=== PATIENT | male | born 1960 | race Two or more races ===

== ENCOUNTER 2025-03-10 10:32 | Inpatient (IN) | payer OTHER, MEDICAID ==
[~2025-03-10] VITALS: Ht 170.2 cm; Wt 93.9 kg
[2025-03-10 10:56] VITALS: PULSE 88; RESP 18; O2SAT 97
--- NOTE | 2025-03-10 11:04 | ED.PDOC ---
History of Present Illness HPI Comments 64-year-old male who is Irish-speaking BIBA with prior medical history of hypertension, diabetes, DVT, possible PE due from taking Eliquis and a chief complaint of chest pain. EMS report that the patient recently went to [place] one week ago and did not want to go back, prompting EMS to bring him to [facility]. Patient reports on having sternal chest pain for the past four days associated with chills, cough, shortness a breath, and N/V. Patient notes on drinking alcohol for the past four days. Patient does have a 7/10 on the pain scale. Denies any other symptoms at this time. Denies fever, /D. No other associated symptoms, modifiers, recent injuries or sick contacts present at this time. Chief Complaint: Chest Pain Time Seen by MD: 11:00 Reviewed Notes: Nurses Notes, Cooker Helper Notes, Medications, Allergies Allergies: Coded Allergies: NO KNOWN ALLERGIES (Unverified , 03/10/25) Information Source: Patient, Emergency Med Personnel Mode of Arrival: EMS Severity: Moderate Timing: Days Duration: Since onset, Days Prehospital treatment: None Past Medical History PAST MEDICAL HISTORY: DM, HTN, PE (Possible PE due from taking Eliquis) Past Medical History (Other): Possible PE due from taking Eliquis, DVT Surgical History: Denies all surgeries Family History Family History: Reviewed,noncontributory to illness, Unknown Social History Smoker: Non-Smoker Alcohol: Heavy Drugs: Denies Drug Use Lives In: Home Constitutional: reports: chills; denies: diaphoresis, fatigue, fever, malaise, sweats, weakness, others EENTM: denies: blurred vision, double vision, ear bleeding, ear discharge, ear drainage, ear pain, ear ringing, eye pain, eye redness, hearing loss, mouth pain, mouth swelling, nasal discharge, nose bleeding, nose congestion, nose pain, photophobia, tearing, throat pain, throat swelling, voice changes, others Respiratory: reports: cough, shortness of breath; denies: hemoptysis, orthopne a, SOB at rest, SOB with excertion, stridor, wheezing, others Cardiovascular: reports: chest pain; denies: dizzy spells, diaphoresis, Dyspnea on exertion, edema, irregular heart beat, left arm pain, lightheadedness, palpitations, PND, syncope, others Gastrointestinal: reports: nausea, vomiting; denies: abdomen distended, abdominal pain, blood streaked bowels, constipated, diarrhea, dysphagia, difficulty swallowing, hematemesis, melena, poor appetite, poor fluid intake, rectal bleeding, rectal pain, others Genitourinary: denies: burning, dysuria, flank pain, frequency, hematuria, incontinence, penile discharge, penile sore, pain, testicle pain, testicle swelling, urgency, others Neurological: denies: dizziness, fainting, headache, left sided numbness, left sided weakness, numbness, paresthesia, pre-existing deficit, right sided numbness, right sided weakness, seizure, speech problems, tingling, tremors, weakness, others Musculoskeletal: denies: back pain, gout, joint pain, joint swelling, muscle pain, muscle stiffness, neck pain, others Integumetry: denies: bruises, change in color, change in hair/nails, dryness, laceration, lesions, lumps, rash, wounds, others Allergic/Immunocompromised: denies: Difficulty Healing, Frequent Infections, Hives, Itching, others Hematologic/Lymphatic: denies: anemia, blood clots, easy bleeding, easy bruising, swollen glands, others Endocrine: denies: excessive hunger, excessive sweating, excessive thirst, excessive urination, flushing, intolerance to cold, intolerance to heat, unexplained weight gain, unexplained weight loss, others Psychiatric: denies: anxiety, bipolar disorder, depression, hopeless, panic disorder, schizophrenia, sleepless, suicidal, others All Other Systems: Reviewed and Negative Physical Exam General Appearance: Moderate Distress, No Apparent Distress, Other (Alcohol on the breath) HEENT: Normal ENT Inspection, Pharynx Normal, TMs Normal Neck: Full Range of Motion, Non-Tender, Normal, Normal Inspection Respiratory: Chest Non-Tender, Lungs Clear, No Accessory Muscle Use, No Respiratory Distress, Normal Breath Sounds Cardiovascular: No Edema, No JVD, No Murmur, No Gallop, Normal Peripheral Pulses, Regular Rate/Rhythm Breast Exam: Deferred Gastrointestinal: No Organomegaly, Non Tender, No Pulsatile Mass, Normal Bowel Sounds, Soft Genitalia: Deferred Pelvic: Deferred Rectal: Deferred Extremities: No calf tenderness, Normal capillary refill, Normal inspection, Normal range of motion, Non-tender, No pedal edema Musculoskeletal : Apperance: Normal Neurologic: Alert, plate glass grinder II-XII nml as Tested, Motor Weakness, Normal Affect, Normal Mood, No Sensory Deficits Cerebellar Function: Normal Reflexes: Normal Skin: Dry, Normal Color, Warm Lymphatic: No Adenopathy Was a procedure done? Was a procedure done?: No EKG EKG : Pulse Rate (adult): 86 [place]: Normal Cardiac Rhythm: NSR Block: None Hypertrophy: None ST: Normal Comments EKG 1: 86 NSR low-voltage Differential Dx Considerations may include: ACS, [place], generalized weakness, electrolyte imbalance X-Ray, Labs, Meds, VS Vital Signs Date Time Temp Pulse Resp B/P (MAP) Pulse Ox O2 Delivery O2 Flow Rate FiO2 03/10/25 11:26 80 03/10/25 11:04 86 03/10/25 11:00 94 Room Air* 0 21 03/10/25 10:56 88 18 97 Room Air* 0 21 03/10/25 10:55 99.0 88 18 133/81 (98) 97 99.0 03/10/25 10:35 86 03/10/25 10:32 98.5 94 12 147/93 98 98.5 Lab Test 03/10/25 10:59 Range/Units White Blood Count 3.6 L 4.4-10.8 10^3/uL Red Blood Count 4.44 L 4.5-5.90 10^6/uL Hemoglobin 14.5 13.5-17.5 g/dL Hematocrit 41.6 41.0-53.0 % Mean Corpuscular Volume 93.6 80.0-100.0 fL Mean Corpuscular Hemoglobin 32.6 H 28.0-32.0 pg Mean Corpuscular Hemoglobin Concent 34.8 32.0-36.0 g/dL Red Cell Distribution Width 14.7 H 11.8-14.3 % Platelet Count 150 140-450 10^3/uL Mean Platelet Volume 8.1 6.9-10.8 fL Neutrophils (%) (Auto) 60.1 37.0-80.0 % Lymphocytes (%) (Auto) 27.9 10.0-50.0 % Monocytes (%) (Auto) 9.7 0.0-12.0 % Eosinophils (%) (Auto) 1.0 0.0-7.0 % Basophils (%) (Auto) 1.3 0.0-2.0 % Neutrophils # (Auto) 2.2 1.6-8.6 10 ^3/uL Lymphocytes # (Auto) 1.0 0.4-5.4 10 ^3/uL Monocytes # (Auto) 0.3 0-1.3 10 ^3/uL Eosinophils # (Auto) 0 0-0.8 10 ^3/uL Basophils # (Auto) 0 0-0.2 10 ^3/uL Nucleated Red Blood Cells 0.2 % D-Dimer, Quantitative Pending Sodium Level 136 136-145 mmol/L Potassium Level 4.3 3.5-5.1 mmol/L Chloride Level 94 L 98-107 mmol/L Carbon Dioxide Level 23 20-31 mmol/L Anion Gap 19 H 5-15 Blood Urea Nitrogen < 5 L 9-23 mg/dL Creatinine 0.91 0.700-1.30 mg/dL Glomerular Filtration Rate Calc 94 >90 mL/min BUN/Creatinine Ratio 5.5 L 10.0-20.0 Serum Glucose 248 H 74-106 mg/dL Calcium Level 8.6 L 8.7-10.4 mg/dL Troponin I High Sensitivity 6 </=54 ng/L Plasma/Serum Blood Alcohol 204.4 H <10 mg/dL Current Medications Medications (Trade) Dose Ordered Sig/Florencia Route Start Time Stop Time Status Last Admin Aspirin 162 mg ONCE ONCE PO 03/10/25 10:45 03/10/25 10:47 DC 03/10/25 11:07 IV Hep-Lock was established The patient was given aspirin 160 mg by mouth The alcohol level is 204 The patient's chemistry panel shows hyperglycemia at 248 The CBC is within normal limits. At this time, the patient is being admitted. The chest x-ray is negative. The patient does have a history what seems to be cardiac and so we are going to ask the programs manager to also see the patient. We will also follow up on the patient's D-dimer Images Reviewed?: Images reviewed and evaluated by me Time of 1ST Reevaluation: 11:30 Reevaluation 1ST: Unchanged Patient Education/Counseling: Diagnosis, Treatment, Prognosis Family Education/Counseling: No Family Present SEPSIS Sepsis Screen Date sepsis recognized/suspect: Mar 10, 2025 Time Sepsis recognized/suspect: 103 Recent Procedure: No On Antibiotic Therapy: No Respiratory Rate >20: No Heart Rate >90: Yes Temp<36 C (96.8 F) or >38.3 C: No SBP <90 or MAP <65 mmHG: No New Acute Mental Status Change: No Is the patient on CPAP, BIPAP,: No Physician Orders Electrocardigram (03/10/25 11:37) Electrocardigram (03/10/25 13:37) Chest Portable (03/10/25 10:45) D-Dimer (03/10/25 10:45) Heplock Iv (03/10/25 10:45) Urinalysis (03/10/25 10:45) Drug Screen (03/10/25 10:45) Troponin-I Hs (03/10/25 11:45) Troponin-I Hs (03/10/25 13:45) Vital Signs Date Time Temp Pulse Resp B/P (MAP) Pulse Ox O2 Delivery O2 Flow Rate FiO2 03/10/25 11:26 80 03/10/25 11:04 86 03/10/25 11:00 94 Room Air* 0 21 03/10/25 10:56 88 18 97 Room Air* 0 21 03/10/25 10:55 99.0 88 18 133/81 (98) 97 99.0 03/10/25 10:35 86 03/10/25 10:32 98.5 94 12 147/93 98 98.5 Laboratory Tests Test 03/10/25 10:59 White Blood Count 3.6 10^3/uL (4.4-10.8) L Medications Medications Dose Ordered Sig/Florencia Route Start Time Stop Time Status Last Admin Dose Admin Aspirin 162 mg ONCE ONCE PO 03/10/25 10:45 03/10/25 10:47 DC 03/10/25 11:07 Departure 1 Departure Time of Disposition: 11:49 Impression: Primary Impression: Acute myocardial ischemia Additional Impression: Alcohol intoxication Qualified Codes: F10.920 - Alcohol use, unspecified with intoxication, uncomplicated Disposition: 09 ADMITTED INPATIENT Admit to: Tele Condition: Fair Critical Care Note Critical Care Time?: Yes (45 min-critical care time only) Stability Stability form required: Yes Unstable for transfer: Telemetry monitoring (Telemetry monitoring required), ED Physician Assesment (Clinical assesment) Heart Score Heart Score: Heart Score Response (Comments) Value History Moderate Suspicious 1 EKG Repolarization Disturb 1 Age >65 2 Risk Factors >3 or Hx ASHD 2 Troponin Normal limit 0 Total 6 I personally scribed for JEREMIAS JOSE MD ([email or web address]) on 03/10/25 at 11:04. Electronically submitted by Jamie Núñez ([email or web address]). JEREMIAS JOSE MD Mar 10, 2025 11:04
--- NOTE | 2025-03-10 11:16 | DVH ---
EXAM: XY CHEST PORTABLE HISTORY: cp COMPARISON: None TECHNIQUE: Portable AP view of the chest was performed. FINDINGS: The right costophrenic angle is not included here. There is interstitial prominence, greatest centrally. No pneumothorax or consolidative infiltrates. The heart is not enlarged. IMPRESSION: 1. Central interstitial prominence may be due to reactive airways disease or mild CHF. 2. The right costophrenic angle is not imaged here.
--- NOTE | 2025-03-10 11:29 | ECG ---
[facility] Test Date: 2025-03-10 Test Time: 11:26:03 Pat Name: CRISTHIAN PUENTES Department: [facility] ED Patient ID: [id number] Room: 0212T Gender: M Front End Developer Designer: STEPHANIE : 1960 Requested By: JEREMIAS JOSE Order Number: [id number] Reading MD: Festus Pickard Measurements Intervals [place] Rate: 80 P: 0 NE: 0 QRS: 35 QRSD: 89 T: 10 QT: 400 QTc: 462 Interpretive Statements Accelerated junctional rhythm Low voltage, precordial leads Probable anteroseptal infarct, old Electronically Signed On 03-15-2025 10:08:31 PST by Festus Pickard Please click the below link to view image of tracing.
[2025-03-10 11:35] LABS: Hematocrit 41.6 % (41.0-53.0); Hemoglobin 14.5 g/dL (13.5-17.5); Mean Corpuscular Hemoglobin 32.6 pg (28.0-32.0); Mean Corpuscular Volume 93.6 fL (80.0-100.0); Nucleated Red Blood Cells % 0.2 %
[2025-03-10 11:37] LABS: Potassium 4.3 mmol/L (3.5-5.1); Sodium 136 mmol/L (136-145)
[2025-03-10 11:38] LABS: Anion Gap 19 (5-15); Carbon Dioxide 23 mmol/L (20-31)
[2025-03-10 11:44] LABS: BUN/Creatinine Ratio 5.5 (10.0-20.0); Blood Urea Nitrogen < 5 mg/dL (9-23); Calcium 8.6 mg/dL (8.7-10.4); Chloride 94 mmol/L (98-107); Glucose 248 mg/dL (74-106)
--- NOTE | 2025-03-10 11:58 | ECG ---
[facility] Test Date: 2025-03-10 Test Time: 10:35:04 Pat Name: CRISTHIAN PUENTES Department: [facility] ED Patient ID: [id number] Room: 0212T Gender: M Timber Hewer: STEPHANIE : 1960 Requested By: JEREMIAS JOSE Order Number: [id number] Reading MD: Festus Pickard Measurements Intervals [place] Rate: 86 P: -75 [place]: 173 QRS: 63 QRSD: 75 T: 73 QT: 394 QTc: 472 Interpretive Statements Sinus or ectopic atrial rhythm Low voltage, extremity and precordial leads Probable anteroseptal infarct, old Electronically Signed On 03-15-2025 10:08:25 PST by Festus Pickard Please click the below link to view image of tracing.
[2025-03-10 13:08] LABS: Urine Protein, UAD TRACE (Negative)
[2025-03-10 13:21] LABS: Amphetamine Screen, Urine Neg (NEGATIVE); Barbiturate Scree,Urine Neg (NEGATIVE); Benzodiazephine Screen, Urine Neg (NEGATIVE); Cannabinoid Screen, Urine Neg (NEGATIVE); Cocaine Screen, Urine Neg (NEGATIVE); Opiate Scree,Urine Neg (NEGATIVE); Phencyclidine Screen, Urine Neg (NEGATIVE)
--- NOTE | 2025-03-10 13:29 | ECG ---
[facility] Test Date: 2025-03-10 Test Time: 13:26:57 Pat Name: CRSITHIAN PUENTES Department: [facility] ED Patient ID[id number] Room: 0212T Gender: M Miter Cutter: STEPHANIE : 1960 Requested By: JEREMIAS JOSE Order Number: [id number] Reading MD: Festus Pickard Measurements Intervals [place] Rate: 78 P: -87 [place]: 171 QRS: 51 QRSD: 97 T: 34 QT: 411 QTc: 469 Interpretive Statements Sinus or ectopic atrial rhythm Borderline low voltage, extremity leads Anteroseptal infarct, old Baseline wander in lead(s) V2 Electronically Signed On 03-15-2025 10:46:54 PST by Festus Pickard Please click the below link to view image of tracing.
[2025-03-10] MEDS: MAALOX PLUS or MAALOX 30 ML PO ONE (15:22)
[2025-03-10] MEDS: CARVEDILOL 3.125 MG TAB PO ONE (15:22)
[2025-03-10] MEDS: PROCHLORPERAZINE EDISYLATE 5 MG/ML 2ML VIAL IV ONE (17:06)
--- NOTE | 2025-03-10 18:06 | DVH ---
INDICATION: pain TECHNIQUE: Multiple real-time sonographic images of the abdomen were obtained. COMPARISON: None FINDINGS: Echogenicity of the hepatic parenchyma suggests steatosis.. The liver measures 18.4 cm. No intrahepatic biliary ductal dilatation is noted. The gallbladder wall measures 0.2 cm and is unremarkable. No gallstones or sludge is seen. The common duct measures 0.7 cm and is unremarkable. No pericholecystic fluid is noted. Negative sonographic Martinez's sign The right kidney measures 11.8 cm. No hydronephrosis. The pancreas is not well visualized due to obscuration from bowel gas. The visualized portions of the IVC and aorta are grossly unremarkable. IMPRESSION: 1. 18.4 cm liver with parenchymal changes suggesting steatosis. 2. No gallstones or gallbladder wall thickening. Mildly dilated common bile duct 7 mm.
[2025-03-10] MEDS ORDERED: DEXTROSE (50%) 50ML SYRG IV PRN (19:30)
[2025-03-10 19:37] VITALS: PULSE 87; RESP 17; O2SAT 96
[2025-03-10] MEDS ORDERED: NITROGLYCERIN 0.4 MG SL TAB SL PRN (20:00)
[2025-03-10] MEDS: ONDANSETRON HCL 4 MG/2 ML VIAL IV PRN (21:02)
[2025-03-10] MEDS: MORPHINE SULFATE INJ 2 MG/ml SYRG IV PRN (21:02)
[2025-03-10] MEDS: IOHEXOL 350 MG/ML 100ML IJ ONE (21:21)
[2025-03-10] MEDS: ACCU-CHEK COMFORT CURVE STRIP VI SCH (22:00)
--- NOTE | 2025-03-10 22:01 | DVH ---
CTA Chest with intravenous contrast INDICATION: r/o pe COMPARISON: XY CHEST PORTABLE on DOS: 03/10/25 TECHNIQUE: Multidetector spiral CTA of the chest was performed of the chest with intravenous contrast. PULMONARY ANGIOGRAPHY PROTOCOL was utilized using a bolus- tracking technique centered on the main pulmonary artery. Axial, coronal and sagittal multiplanar and MIP reformats were performed. Radiation Dose : 1. Chest: CTDI volume is 26.84 mGy. Dose-length product is 2217.57 mGy*cm The dose indicators for CT are the volume Computed Tomography (CT) Dose Index (CTDIvol) and the Dose Length Product (DLP), and are measured in units of mGy and mGy-cm, respectively. These indicators are not patient dose, but values generated from the CT scanner acquisition factors. The report includes radiation exposure data for exposures received during this examination. Contrast: 100 cc Omnipaque 350. Findings: Pulmonary artery: No pulmonary embolism Lower neck: Normal thyroid. Lungs: No focal consolidation, pleural effusion or pneumothorax. Heart/Vascular Structures: Normal heart size. No pericardial effusion. Coronary calcifications. Lymph Nodes: No adenopathy Pleura: No pleural effusion or significant pneumothorax. Musculoskeletal: No acute osseous abnormality. Soft tissues: Normal. Upper abdomen: Limited portions of the upper abdomen are unremarkable. IMPRESSION: No pulmonary embolus or other acute abnormality.
[2025-03-10 22:36] VITALS: BP 173/107; PULSE 87; RESP 18; TEMP 98.5; O2SAT 93
[2025-03-10] MEDS: ATORVASTATIN 20 MG TAB PO SCH (23:08)
[2025-03-10] MEDS: ACETAMINOPHEN 325 MG TAB PO PRN (23:09)
[2025-03-10] MEDS: InsuLIN REG 1unit/0.01ml Soln (100units/ml) SC SCH (23:17)
[2025-03-10 23:50] VITALS: BP 173/107; PULSE 87; RESP 18; O2SAT 93
[2025-03-11 01:00] VITALS: BP 159/100; PULSE 84; RESP 18; TEMP 98.2; O2SAT 92
[2025-03-11] MEDS: HYDROcodone-ACET 5/325MG TAB PO PRN (01:10)
--- NOTE | 2025-03-11 04:38 | DVHHP2 ---
History of Present Illness Reason for Visit: Chest pain History of Present Illness 64-year-old male presents for evaluation of chest pain. Patient reports a three day history of substernal pressure-like nonradiating chest pain with associated nausea and shortness of breath. Currently reports the pain at 6/10 intensity. No cough or fever. Past Medical History Hypertension, diabetes mellitus, DVT Past Surgical History Denies Family History Noncontributory Smoke: No ALCOHOL: heavy Drugs: None Lives: with Family Review of Systems Review of Systems Review of systems are currently negative otherwise addressed in HPI. Allergies: Coded Allergies: NO KNOWN ALLERGIES (Unverified , 03/10/25) Medications Current Medications Medications Dose Ordered Sig/Florencia Route Start Time Stop Time Status Last Admin Dose Admin Aspirin 81 mg DAILY PO 03/11/25 10:00 Atorvastatin Calcium 10 mg HS PO 03/10/25 22:00 03/10/25 23:08 10 MG Diagnostic Test (Pha) 1 strip ACHS 03/10/25 22:00 03/10/25 22:00 1 STRIP Insulin Human Regular ACHS SC 03/10/25 22:00 03/10/25 23:17 4 UNITS Dextrose 50 ml UD PRN IV 03/10/25 19:30 Ondansetron HCl 4 mg Q4HP PRN IV 03/10/25 19:30 03/10/25 23:08 4 MG Acetaminophen 650 mg Q6HP PRN PO 03/10/25 19:30 03/10/25 23:09 650 MG Nitroglycerin 0.4 mg Q5MINP PRN SL 03/10/25 20:00 Morphine Sulfate 2 mg Q30M PRN IV 03/10/25 20:00 03/10/25 21:02 2 MG Clonidine HCl 0.1 mg Q6HP PRN PO 03/11/25 00:15 03/11/25 00:14 0.1 MG Acetaminophen/ Hydrocodone Bitart 1 tab Q6HPRN PRN PO 03/11/25 01:00 03/11/25 01:10 1 TAB Exam Vital Signs Vital Signs Date Time Temp Pulse Resp B/P (MAP) Pulse Ox O2 Delivery O2 Flow Rate FiO2 03/11/25 01:14 159/100 03/11/25 01:00 98.2 84 18 92 98.2 03/10/25 22:36 Room Air* 0 21 Exam Gen: 64-year-old male in mild distress Skin: Warm, dry, normal color and texture, no rash. HEENT: Normocephalic atraumatic, mucous membranes moist and pink. Neck: Cervical and supraclavicular nodes normal without enlargement, trachea is midline, thyroid gland is normal without masses. Pulmonary: Clear to auscultation and percussion bilaterally. Cardiac: Regular rate and rhythm. No murmur Abdomen: Soft, nontender, nondistended, bowel sounds present all 4 quadrants, no guarding, no rigidity, no organomegaly. Extremities: No cyanosis, clubbing, no edema Neuro: Cranial nerves II through XII grossly intact, normal affect and speech, no focal motor deficits. Labs/Xrays ORDERING PHYSICIAN: JEREMIAS JOSE MD PROCEDURE(s): GBUS - GALLBLADDER REASON: pain ORDER NUMBER(s): [id number], ACCESSION NUMBER(s): [id number] INDICATION: pain TECHNIQUE: Multiple real-time sonographic images of the abdomen were obtained. COMPARISON: None FINDINGS: Echogenicity of the hepatic parenchyma suggests steatosis.. The liver measures 18.4 cm. No intrahepatic biliary ductal dilatation is noted. The gallbladder wall measures 0.2 cm and is unremarkable. No gallstones or sludge is seen. The common duct measures 0.7 cm and is unremarkable. No pericholecystic fluid is noted. Negative sonographic Martinez's sign The right kidney measures 11.8 cm. No hydronephrosis. The pancreas is not well visualized due to obscuration from bowel gas. The visualized portions of the IVC and aorta are grossly unremarkable. IMPRESSION: 1. 18.4 cm liver with parenchymal changes suggesting steatosis. 2. No gallstones or gallbladder wall thickening. Mildly dilated common bile duct 7 mm. ORDERING PHYSICIAN: KAYLIN HINTON PROCEDURE(s): CTACH - CT ANGIO CHEST CONTRAST REASON: r/o pe ORDER NUMBER(s): [id number], ACCESSION NUMBER(s): [id number] CTA Chest with intravenous contrast INDICATION: r/o pe COMPARISON: XY CHEST PORTABLE on DOS: 03/10/25 TECHNIQUE: Multidetector spiral CTA of the chest was performed of the chest with intravenous contrast. PULMONARY ANGIOGRAPHY PROTOCOL was utilized using a bolus- tracking technique centered on the main pulmonary artery. Axial, coronal and sagittal multiplanar and MIP reformats were performed. Radiation Dose : 1. Chest: CTDI volume is 26.84 mGy. Dose-length product is 2217.57 mGy*cm The dose indicators for CT are the volume Computed Tomography (CT) Dose Index (CTDIvol) and the Dose Length Product (DLP), and are measured in units of mGy and mGy-cm, respectively. These indicators are not patient dose, but values g enerated from the CT scanner acquisition factors. The report includes radiation exposure data for exposures received during this examination. Contrast: 100 cc Omnipaque 350. Findings: Pulmonary artery: No pulmonary embolism Lower neck: Normal thyroid. Lungs: No focal consolidation, pleural effusion or pneumothorax. Heart/Vascular Structures: Normal heart size. No pericardial effusion. Coronary calcifications. Lymph Nodes: No adenopathy Pleura: No pleural effusion or significant pneumothorax. Musculoskeletal: No acute osseous abnormality. Soft tissues: Normal. Upper abdomen: Limited portions of the upper abdomen are unremarkable. IMPRESSION: No pulmonary embolus or other acute abnormality. Labs Test 03/10/25 22:35 03/10/25 22:17 03/10/25 12:05 03/10/25 10:59 Range/Units POC Glucose 208 H 70-106 mg/dl Troponin I High Sensitivity 10 </=54 ng/L Urine Color Light-yellow Yellow Urine Clarity Clear Clear Urine pH 7.5 5.0-9.0 Urine Specific [place] 1.019 1.001-1.035 Urine Protein Trace H Negative Urine Ketones 1+ H Negative Urine Blood Negative Negative /uL Urine Nitrite Negative Negative Urine Bilirubin Negative Negative Urine Urobilinogen 2 H Negative mg/dL Urine Leukocyte Esterase Negative Negative /uL Urine RBC 1 0 - 3 /hpf Urine Microscopic WBC 1 0-3 /HPF Urine Squamous Epithelial Cells Few <5 /hpf Urine Bacteria None seen None Seen /hpf Urine Glucose 4+ H Normal mg/dL Urine Opiates Screen Neg NEGATIVE Urine Fentanyl Screen Neg NEGATIVE Urine Barbiturates Screen Neg NEGATIVE Urine Phencyclidine Screen Neg NEGATIVE Urine Amphetamines Screen Neg NEGATIVE Urine Benzodiazepines Screen Neg NEGATIVE Urine Cocaine Screen Neg NEGATIVE Urine Cannabinoids Screen Neg NEGATIVE White Blood Count 3.6 L 4.4-10.8 10^3/uL Red Blood Count 4.44 L 4.5-5.90 10^6/uL Hemoglobin 14.5 13.5-17.5 g/dL Hematocrit 41.6 41.0-53.0 % Mean Corpuscular Volume 93.6 80.0-100.0 fL Mean Corpuscular Hemoglobin 32.6 H 28.0-32.0 pg Mean Corpuscular Hemoglobin Concent 34.8 32.0-36.0 g/dL Red Cell Distribution Width 14.7 H 11.8-14.3 % Platelet Count 150 140-450 10^3/uL Mean Platelet Volume 8.1 6.9-10.8 fL Neutrophils (%) (Auto) 60.1 37.0-80.0 % Lymphocytes (%) (Auto) 27.9 10.0-50.0 % Monocytes (%) (Auto) 9.7 0.0-12.0 % Eosinophils (%) (Auto) 1.0 0.0-7.0 % Basophils (%) (Auto) 1.3 0.0-2.0 % Neutrophils # (Auto) 2.2 1.6-8.6 10 ^3/uL Lymphocytes # (Auto) 1.0 0.4-5.4 10 ^3/uL Monocytes # (Auto) 0.3 0-1.3 10 ^3/uL Eosinophils # (Auto) 0 0-0.8 10 ^3/uL Basophils # (Auto) 0 0-0.2 10 ^3/uL Nucleated Red Blood Cells 0.2 % D-Dimer, Quantitative 1.23 H 0.0-0.49 mg/L FEU Sodium Level 136 136-145 mmol/L Potassium Level 4.3 3.5-5.1 mmol/L Chloride Level 94 L 98-107 mmol/L Carbon Dioxide Level 23 20-31 mmol/L Anion Gap 19 H 5-15 Blood Urea Nitrogen < 5 L 9-23 mg/dL Creatinine 0.91 0.700-1.30 mg/dL Glomerular Filtration Rate Calc 94 >90 mL/min BUN/Creatinine Ratio 5.5 L 10.0-20.0 Serum Glucose 248 H 74-106 mg/dL Calcium Level 8.6 L 8.7-10.4 mg/dL B-Type Natriuretic Peptide 77.48 0-100 pg/mL Plasma/Serum Blood Alcohol 204.4 H <10 mg/dL SEPSIS Sepsis Screen Date sepsis recognized/suspect: Mar 10, 2025 Time Sepsis recognized/suspect: 2018 Recent Procedure: No On Antibiotic Therapy: No Respiratory Rate >20: No Heart Rate >90: No Temp<36 C (96.8 F) or >38.3 C: No SBP <90 or MAP <65 mmHG: No New Acute Mental Status Change: No Is the patient on CPAP, BIPAP,: No Physician Orders Ct Angio Chest Contrast (03/10/25 21:09) Clonidine Hcl Tablet (Catapres Tablet) (03/11/25 00:15) Hydrocodone-Acet 5/325mg Tab ([place] (03/11/25 01:00) Thyroid Stimulating Hormone (03/11/25 04:32) Lipid Panel (03/11/25 04:32) Lisinopril Tablet (Zestril Tablet) (03/11/25 10:00) Atorvastatin (Lipitor) (03/11/25 22:00) Carvedilol Tablet (Coreg Tablet) (03/11/25 10:00) Vital Signs Date Time Temp Pulse Resp B/P (MAP) Pulse Ox O2 Delivery O2 Flow Rate FiO2 03/11/25 01:14 159/100 03/11/25 01:00 98.2 84 18 159/100 (119) 92 98.2 03/11/25 00:14 173/107 03/10/25 23:50 87 18 173/107 (129) 93 03/10/25 22:36 87 18 93 Room Air* 0 21 03/10/25 22:36 98.5 87 18 173/107 (129) 93 98.5 03/10/25 22:15 89 14 150/98 (115) 94 03/10/25 21:02 82 20 166/91 Medications Medications Dose Ordered Sig/Florencia Route Start Time Stop Time Status Last Admin Dose Admin Acetaminophen 650 mg Q6HP PRN PO 03/10/25 19:30 03/10/25 23:09 650 MG Acetaminophen/ Hydrocodone Bitart 1 tab Q6HPRN PRN PO 03/11/25 01:00 03/11/25 01:10 1 TAB Atorvastatin Calcium 10 mg HS PO 03/10/25 22:00 03/10/25 23:08 10 MG Clonidine HCl 0.1 mg Q6HP PRN PO 03/11/25 00:15 03/11/25 00:14 0.1 MG Diagnostic Test (Pha) 1 strip ACHS 03/10/25 22:00 03/10/25 22:00 1 STRIP Insulin Human Regular ACHS SC 03/10/25 22:00 03/10/25 23:17 4 UNITS Morphine Sulfate 2 mg Q30M PRN IV 03/10/25 20:00 03/10/25 21:02 2 MG Ondansetron HCl 4 mg Q4HP PRN IV 03/10/25 19:30 03/10/25 23:08 4 MG Prochlorperazine Edisylate 10 mg ONCE ONCE IV 03/10/25 17:15 03/10/25 17:16 DC 03/10/25 17:06 10 MG Assessment/Plan Assessment/Plan Chest pain rule out ACS Hypertensive crisis Alcohol intoxication Diabetes mellitus Plan Admit the patient to telemetry to the hospitalist Cardiology consultation Echocardiogram pending Resume home medications Continue treatment per orders. Plan discussed with: Patient My Orders Orders - KAYLIN HINTON Procedure Category Date Status Time Aspirin Tablet PHA 03/11/25 In Process 10:00 Atorvastatin (Lipitor) PHA 03/10/25 In Process 22:00 Basic Metabolic Panel LAB 03/11/25 Logged 04:00 Glucose Blood PHA 03/10/25 In Process (Accu-Chek Comfort 22:00 Insulin R (Human) PHA 03/10/25 In Process (Insulin R) 22:00 Dextrose 50% Syringe PHA 03/10/25 In Process 19:30 Ondansetron Hcl PHA 03/10/25 In Process (Zofran) 19:30 Cardiac DIET 03/11/25 Transmitted Diet-2gna,Lofat,Lochol Breakfast Echo 2d Mode Cardiac US 03/10/25 Logged DOP 19:28 Condition: Fair [place] 03/10/25 In Process 19:28 Acetaminophen Tablet PHA 03/10/25 In Process (Tylenol Tablet) 19:30 Bedrest With Bathroom [place] 03/10/25 In Process Privileg 19:28 Admit ADMIT 03/10/25 Transmitted 19:56 Nitroglycerin PHA 03/10/25 In Process Sublingual (Ntrostat 20:00 Morphine Sulfate PHA 03/10/25 In Process Injection 20:00 Stat Ekg For Chest [place] 03/10/25 In Process Pain 19:56 Notify Md Of Changes [facility] [place] 03/10/25 In Process From Base 19:56 Ice Cream Dispenser For [facility] [place] 03/10/25 In Process 24 Hours 19:56 Emergency Dysrhythmia [facility] [place] 03/10/25 In Process Protocol 19:56 Rhythm Strips Once [facility] [place] 03/10/25 In Process Every Shift 19:56 Oxygen By Nasal RT 03/10/25 Transmitted Cannula 19:[address] 03/10/25 Resulted Contrast 21:09 Clonidine Hcl Tablet PHA 03/11/25 In Process (Catapres Tablet) 00:15 Hydrocodone-Acet PHA 03/11/25 In Process 5/325mg Tab ([place] 01:00 Thyroid Stimulating LAB 03/11/25 Transmitted Hormone 04:32 Lipid Panel LAB 03/11/25 Transmitted 04:32 Lisinopril Tablet PHA 03/11/25 Transmitted (Zestril Tablet) 10:00 Atorvastatin (Lipitor) PHA 03/11/25 Transmitted 22:00 Carvedilol Tablet PHA 03/11/25 Transmitted (Coreg Tablet) 10:00 Date of Service: Mar 10, 2025 Billing Provider: KAYLIN HINTON Common Visit Codes: [id number] INP/OBS CARE (HIGH) KAYLIN HINTON Mar 11, 2025 04:38
[2025-03-11 05:00] VITALS: BP 140/100; PULSE 79; RESP 18; TEMP 98.3; O2SAT 94
[2025-03-11 06:11] LABS: Potassium 4.2 mmol/L (3.5-5.1); Sodium 138 mmol/L (136-145)
[2025-03-11 06:12] LABS: Anion Gap 14 (5-15); Carbon Dioxide 30 mmol/L (20-31)
[2025-03-11 06:13] LABS: Calcium 9.2 mg/dL (8.7-10.4)
[2025-03-11 06:17] LABS: BUN/Creatinine Ratio 8.2 (10.0-20.0)
[2025-03-11 06:22] LABS: Blood Urea Nitrogen 8 mg/dL (9-23); Chloride 94 mmol/L (98-107); Glucose 191 mg/dL (74-106)
[2025-03-11 06:33] LABS: Triglycerides 80 mg/dL (< 150)
[2025-03-11 06:35] LABS: Cholesterol 187 mg/dL (< 200)
[2025-03-11 06:51] LABS: HDL Cholesterol 103 mg/dL (40-59)
[2025-03-11 08:47] VITALS: BP 129/75; PULSE 82; RESP 16; TEMP 98.4; O2SAT 94
--- NOTE | 2025-03-11 09:03 | DVHCONRES ---
Date Seen: Mar 11, 2025 Resident Creating Document: TREVON JASON RESIDENT Referring Physician MARY JANE HERNANDEZ History of Present Illness 64-year-old male who presented to the ER with the chief complaint of chest pain for the past 3 days. Patient reports that he has been drinking heavily, last drink was 3 days back. He has been experiencing nausea and vomiting, almost 5 times a day, nonbloody. Patient says that the chest pain is sharp/pressure- type, substernal and left-sided, radiating to the left shoulder, nonexertional, constant, associated with abdominal pain. He is not able to keep solids or liquid food down. Also says that he was told that he is pending left heart angiogram as outpatient, waiting for insurance approval. Past medical history: Hypertension,? Unspecified arrhythmia, unspecified CHF, alcohol abuse, diabetes mellitus Social history: Denies smoking, drinks alcohol, denies drug use Home meds: amiodarone 200 mg daily, apixaban 5 mg BID, aspirin 81 mg daily, atorvastatin 10 mg daily at bedtime, carvedilol 3.125 mg, entresto 24-26 mg, ga bapentin 800 mg , methocarbamol 750 mg PRN q 6 hrs, insulin glargine, insulin lispro, metformin 1000 mg, nateglinide 120 mg, pioglitazone 30 mg, tamsulosin 0.4 mg Patient seen and examined in bed 212, reports nausea, denies active chest pain at this time Family History: Diabetes mellitus G8 MOTHER Allergies: Coded Allergies: NO KNOWN ALLERGIES (Unverified , 03/10/25) Home Meds Unable to Obtain Active Prescriptions or Reported Meds Current Medications Current Medications Medications (Trade) Dose Ordered Sig/Florencia Route PRN Reason Start Time Stop Time Status Last Admin Aspirin 81 mg DAILY PO 03/11/25 10:00 Atorvastatin Calcium (Lipitor) 10 mg HS PO 03/10/25 22:00 03/11/25 04:42 DC 03/10/25 23:08 Diagnostic Test (Pha) (Accu-Chek Comfort Curve T) 1 strip ACHS 03/10/25 22:00 03/11/25 06:46 Insulin Human Regular (InsuLIN R) ACHS SC 03/10/25 22:00 03/11/25 06:46 Dextrose 50 ml UD PRN IV Blood Sugar LESS THAN 60 03/10/25 19:30 Ondansetron HCl (Zofran) 4 mg Q4HP PRN IV NAUSEA / VOMITING 03/10/25 19:30 03/10/25 23:08 Acetaminophen (Tylenol Tablet) 650 mg Q6HP PRN PO PAIN SCALE 1-3 OR TEMP>100.4 03/10/25 19:30 03/10/25 23:09 Nitroglycerin (Ntrostat Sublingual) 0.4 mg Q5MINP PRN SL FOR CHEST PAIN 03/10/25 20:00 Morphine Sulfate 2 mg Q30M PRN IV FOR CHEST PAIN 03/10/25 20:00 03/10/25 21:02 Clonidine HCl (Catapres Tablet) 0.1 mg Q6HP PRN PO SBP>160 03/11/25 00:15 03/11/25 00:14 Acetaminophen/ Hydrocodone Bitart ([place] 5/325MG Tab) 1 tab Q6HPRN PRN PO MODERATE PAIN (4-6 PAIN SCALE) 03/11/25 01:00 03/11/25 01:10 Lisinopril (Zestril Tablet) 10 mg DAILY PO 03/11/25 10:00 Atorvastatin Calcium (Lipitor) 10 mg HS PO 03/11/25 22:00 Carvedilol (Coreg Tablet) 3.125 mg Q12HR PO 03/11/25 10:00 Review of Systems Eyes: No Pain, No Vision change, No Conjunctivae inflammation, No Eyelid inflammation, No Other, No Redness ENT: No Ear pain, No Ear discharge, No Nose pain, No Nose discharge, No Nose congestion, No Mouth pain, No Mouth swelling, No Throat pain, No Throat swelling, No Other Cardiovascular: Reports Chest Pain, No Palpitations, No Orthopnea, No PND, No Edema, No Lt Headedness, No Other Respiratory: No Cough, No Dry, No Shortness of breath, No SOB with exertion, No Wheezing, No Hemoptysis, No Pleuritic Pain, No Sputum, No Other Gastrointestinal: Reports Nausea, Vomiting, Abdominal Pain, No Diarrhea, No Constipation, No Melena, No Hematochezia, No Other Genitourinary: No Dysuria, No Frequency, No Incontinence, No Hematuria, No Retention, No Other Musculoskeletal: No other, No neck pain, No shoulder pain, No arm pain, No back pain, No hand pain, No leg pain, No foot pain Skin: No Rash, No Lesions, No Jaundice, No Bruising, No Other Vital Signs Vital Signs Date Time Temp Pulse Resp B/P (MAP) Pulse Ox O2 Delivery O2 Flow Rate FiO2 03/11/25 08:47 98.4 82 16 129/75 (93) 94 98.4 03/10/25 22:36 Room Air* 0 21 Physical Exam Patient lying in bed, in no acute distress, disheveled, alcoholic breaths General: Obese, afebrile, palor, mucosae are moist Cardiovascular: Regular S1 and S2. No murmurs, gallops or rubs. No JVD elevation. No pedal edema Respiratory: Decreased bilateral air entry on auscultation, on room air Abdomen: Soft, tender, nondistended, normoactive bowel sounds, no rebound tenderness, no organomegaly, no masses Genitourinary: Deferred MSK/skin: Mobilizes 4 limbs. Skin is dry and warm Neurological: No motor, no sensitive deficits, normal speech. Pupils are isocoric and reactive. Psych/Mental Status: A/Ox3 Labs/Diagnostic Data Labs Test 03/11/25 06:25 03/11/25 04:35 03/10/25 22:17 03/10/25 12:05 Range/Units POC Glucose 207 H 70-106 mg/dl Sodium Level 138 136-145 mmol/L Potassium Level 4.2 3.5-5.1 mmol/L Chloride Level 94 L 98-107 mmol/L Carbon Dioxide Level 30 20-31 mmol/L Anion Gap 14 5-15 Blood Urea Nitrogen 8 L 9-23 mg/dL Creatinine 0.98 0.700-1.30 mg/dL Glomerular Filtration Rate Calc 86 >90 mL/min BUN/Creatinine Ratio 8.2 L 10.0-20.0 Serum Glucose 191 H 74-106 mg/dL Calcium Level 9.2 8.7-10.4 mg/dL Triglycerides Level 80 < 150 mg/dL Cholesterol Level 187 < 200 mg/dL LDL Cholesterol 56 < 100 mg/dL HDL Cholesterol 103 H 40-59 mg/dL Thyroid Stimulating Hormone (TSH) 1.09 0.55-4.78 uIU/mL Troponin I High Sensitivity 10 </=54 ng/L Urine Color Light-yellow Yellow Urine Clarity Clear Clear Urine pH 7.5 5.0-9.0 Urine Specific [place] 1.019 1.001-1.035 Urine Protein Trace H Negative Urine Ketones 1+ H Negative Urine Blood Negative Negative /uL Urine Nitrite Negative Negative Urine Bilirubin Negative Negative Urine Urobilinogen 2 H Negative mg/dL Urine Leukocyte Esterase Negative Negative /uL Urine RBC 1 0 - 3 /hpf Urine Microscopic WBC 1 0-3 /HPF Urine Squamous Epithelial Cells Few <5 /hpf Urine Bacteria None seen None Seen /hpf Urine Glucose 4+ H Normal mg/dL Urine Opiates Screen Neg NEGATIVE Urine Fentanyl Screen Neg NEGATIVE Urine Barbiturates Screen Neg NEGATIVE Urine Phencyclidine Screen Neg NEGATIVE Urine Amphetamines Screen Neg NEGATIVE Urine Benzodiazepines Screen Neg NEGATIVE Urine Cocaine Screen Neg NEGATIVE Urine Cannabinoids Screen Neg NEGATIVE Test 03/10/25 10:59 Range/Units White Blood Count 3.6 L 4.4-10.8 10^3/uL Red Blood Count 4.44 L 4.5-5.90 10^6/uL Hemoglobin 14.5 13.5-17.5 g/dL Hematocrit 41.6 41.0-53.0 % Mean Corpuscular Volume 93.6 80.0-100.0 fL Mean Corpuscular Hemoglobin 32.6 H 28.0-32.0 pg Mean Corpuscular Hemoglobin Concent 34.8 32.0-36.0 g/dL Red Cell Distribution Width 14.7 H 11.8-14.3 % Platelet Count 150 140-450 10^3/uL Mean Platelet Volume 8.1 6.9-10.8 fL Neutrophils (%) (Auto) 60.1 37.0-80.0 % Lymphocytes (%) (Auto) 27.9 10.0-50.0 % Monocytes (%) (Auto) 9.7 0.0-12.0 % Eosinophils (%) (Auto) 1.0 0.0-7.0 % Basophils (%) (Auto) 1.3 0.0-2.0 % Neutrophils # (Auto) 2.2 1.6-8.6 10 ^3/uL Lymphocytes # (Auto) 1.0 0.4-5.4 10 ^3/uL Monocytes # (Auto) 0.3 0-1.3 10 ^3/uL Eosinophils # (Auto) 0 0-0.8 10 ^3/uL Basophils # (Auto) 0 0-0.2 10 ^3/uL Nucleated Red Blood Cells 0.2 % D-Dimer, Quantitative 1.23 H 0.0-0.49 mg/L FEU B-Type Natriuretic Peptide 77.48 0-100 pg/mL Plasma/Serum Blood Alcohol 204.4 H <10 mg/dL Assessment Acute chest pain, rule out ACS Unspecified CHF ? Unspecified arrhythmia on Eliquis-chads score 6 Acute alcohol intoxication Uncontrolled hypertension Diabetes mellitus type 2-A1c pending Dyslipidemia Obesity EKGs: Sinus rhythm, no ST changes Troponins unremarkable BNP unremarkable Plan/Recommendation Given the chest pain and multiple risk factors, patient will be scheduled for Cardiolite stress test on 1st availability. Continue guideline directed medical therapy with Entresto, Coreg Patient reports taking anticoagulation at home, reasons unknown, recommend continuing Lovenox 1 mg/kg b.i.d. inpatient, transition to DOAC on discharge Strict I&Os, cardiac diet Counseled regarding healthy lifestyle and dietary habits Keep K greater than 4 Mag greater than 2 Rest of management per primary team Thank you for consulting Cardiology Plan discussed with patient in which all questions have been answered Case discussed with Dr. Pickard Plan discussed with: Patient Visit Coding Cardiology RES Date of Service: Mar 11, 2025 Billing Provider: EFREN PICKARD Sr., MD Cardiology Common Codes: CONSULT ONLY TREVON JASON RESIDENT Mar 11, 2025 09:03
[2025-03-11] MEDS ORDERED: LISINOPRIL 5 MG TAB PO SCH (10:00)
[2025-03-11] MEDS: CARVEDILOL 3.125 MG TAB PO SCH (10:18)
[2025-03-11] MEDS: SACUBITRIL-VALSARTAN 24mg/26mg TAB PO SCH (10:18)
[2025-03-11 11:54] LABS: INR 1.18 (0.9-1.15); Partial Thromboplastin Time 25.0 SEC (24.5-34.5); Prothrombin Time 12.3 sec (9.3-11.8)
[2025-03-11] MEDS ORDERED: IBUP-1454 PO (12:47)
[2025-03-11] MEDS ORDERED: ATOR10TA52 PO (12:47)
[2025-03-11] MEDS ORDERED: SILD-60 PO (12:47)
[2025-03-11] MEDS ORDERED: CHOL1TAB30 PO (12:47)
[2025-03-11] MEDS ORDERED: METF-372 PO (12:47)
[2025-03-11] MEDS ORDERED: TAMS0.4C39 PO (12:47)
[2025-03-11] MEDS ORDERED: DICL1GEL72 EX (12:47)
[2025-03-11] MEDS ORDERED: AMIO200T33 PO (12:47)
[2025-03-11] MEDS ORDERED: INSU100I21 SC (12:47)
[2025-03-11] MEDS ORDERED: GABA-339 PO (12:47)
[2025-03-11] MEDS ORDERED: LORA-622 PO (12:47)
[2025-03-11] MEDS ORDERED: SACU1TAB PO (12:47)
[2025-03-11] MEDS ORDERED: SENN25TA PO (12:47)
[2025-03-11] MEDS ORDERED: SITA100T7 PO (12:47)
[2025-03-11 13:00] VITALS: BP 150/93; PULSE 78; RESP 16; TEMP 98.2; O2SAT 95
--- NOTE | 2025-03-11 15:53 | DVHPN2 ---
Subjective No chest pain today Reviewed: H&P Changes from previous H/P or p: No Changes Objective Vitals Vital Signs Date Time Temp Pulse Resp B/P (MAP) Pulse Ox O2 Delivery O2 Flow Rate FiO2 03/11/25 13:00 98.2 78 16 150/93 (112) 95 98.2 03/10/25 22:36 Room Air* 0 21 Intake/Output Intake and Output 03/11/25 05:00 Intake Total 300 ml Output Total 300 ml Balance 0 ml Intake Oral 300 ml Output Urine Total 300 ml # Voids 2 General Appearance: Alert, Oriented X3 HEENT: Atraumatic Lungs: Clear to auscultation Cardiovascular: Regular rate, Normal S2 Abdomen: Normal bowel sounds Medications Current Medications Medications Dose Ordered Sig/[place] Route Start Time Stop Time Status Last Admin Dose Admin Aspirin 81 mg DAILY PO 03/11/25 10:00 03/11/25 10:17 81 MG Diagnostic Test (Pha) 1 strip ACHS 03/10/25 22:00 03/11/25 11:51 1 STRIP Insulin Human Regular ACHS SC 03/10/25 22:00 03/11/25 12:21 6 UNITS Dextrose 50 ml UD PRN IV 03/10/25 19:30 Ondansetron HCl 4 mg Q4HP PRN IV 03/10/25 19:30 03/10/25 23:08 4 MG Acetaminophen 650 mg Q6HP PRN PO 03/10/25 19:30 03/10/25 23:09 650 MG Nitroglycerin 0.4 mg Q5MINP PRN SL 03/10/25 20:00 Morphine Sulfate 2 mg Q30M PRN IV 03/10/25 20:00 03/10/25 21:02 2 MG Clonidine HCl 0.1 mg Q6HP PRN PO 03/11/25 00:15 03/11/25 00:14 0.1 MG Acetaminophen/ Hydrocodone Bitart 1 tab Q6HPRN PRN PO 03/11/25 01:00 03/11/25 11:47 1 TAB Atorvastatin Calcium 10 mg HS PO 03/11/25 22:00 Carvedilol 3.125 mg Q12HR PO 03/11/25 10:00 03/11/25 10:18 3.125 MG Sacubitril/ Valsartan 1 tab BID PO 03/11/25 10:00 03/11/25 10:18 1 TAB Laboratory Results Laboratory Tests 03/10/25 10:59 03/11/25 04:35 Chemistry Test 03/11/25 04:35 Calcium Level 9.2 mg/dL (8.7-10.4) Coagulation Test 03/11/25 11:25 Prothrombin Time 12.3 sec (9.3-11.8) H Prothrombin Time INR 1.18 (0.9-1.15) H Activated Partial Thromboplast Time 25.0 SEC (24.5-34.5) Lipid panel Test 03/11/25 04:35 Cholesterol Level 187 mg/dL (< 200) HDL Cholesterol 103 mg/dL (40-59) H Triglycerides Level 80 mg/dL (< 150) HgA1c, TSH Test 03/11/25 04:35 Hemoglobin A1c 8.5 % A1C (<5.7) H Thyroid Stimulating Hormone (TSH) 1.09 uIU/mL (0.55-4.78) Urinalysis Test 03/10/25 12:05 Urine Color Light-yellow (Yellow) Urine Clarity Clear (Clear) Urine pH 7.5 (5.0-9.0) Urine Specific [place] 1.019 (1.001-1.035) Urine Protein Trace (Negative) H Urine Ketones 1+ (Negative) H Urine Blood Negative /uL (Negative) Urine Nitrite Negative (Negative) Urine Bilirubin Negative (Negative) Urine Urobilinogen 2 mg/dL (Negative) H Urine Leukocyte Esterase Negative /uL (Negative) Urine RBC 1 /hpf (0 - 3) Urine Microscopic WBC 1 /HPF (0-3) Urine Squamous Epithelial Cells Few /hpf (<5) Urine Bacteria None seen /hpf (None Seen) Urine Glucose 4+ mg/dL (Normal) H Assessment/Plan Assessment/Plan Chest pain rule out ACS Hypertensive crisis Alcohol intoxication Diabetes mellitus Echo pending Continue BP medications Cardiology consulted Dispo: DC in next 1-2 days Plan discussed with: Patient Date of Service: Mar 11, 2025 Billing Provider: NEHAL KWONG MD Common Visit Codes: [id number] INP/OBS CARE(HIGH) NEHAL KWONG MD Mar 11, 2025 15:53
--- NOTE | 2025-03-11 17:06 | DVHSR ---
APPROVED REPORT EXAM: Two-dimensional and M-mode echocardiogram with Doppler and color Doppler. Blood Pressure: 140/100 mmHg INDICATION Chest Pain RISK FACTORS Height: 5'7", Weight: 202 DIMENSIONS LVDd 3.9 (3.8-5.7cm) LA (2D) 3.3 (1.9-4.0cm) Aortic Root (2.0-3.7cm) LVDs 2.9 (2.5-4.0cm) LA (MM) (1.9-4.0cm) Aortic Cusp Exc (1.5-2.0cm) EF (%) 50.0 (55-70%) Rt. Atrium 3.7 (1.9-4.0cm) Asc. Aorta cm IVSd 0.9 (0.7-1.1cm) RV (D) (1.8-2.4cm) Mitral Valve Mitral Mitral Stenosis E wave 0.56m/s MV Mean GR. mmHg A wave 0.81m/s MV Peak GR. mmHg E/A ratio 0.7 2D MVA cm2 DECEL Time 267ms PRESS 1/2 Time ms Aortic Valve Aortic Valve Aortic Stenosis V1 0.88m/s AO Mean GR. 2mmHg V2 0.96m/s AO Peak GR. 4mmHg LVOT Diameter 2.0 (1.8-2.4cm) Doppler REJI 2.88cm2 Other Information Quality : Technically Limited Rhythm : Technically limited study due to body habitus. Conclusion Technically difficult study. Difficult acoustic windows. Off axis views. Aortic root enlargement. Mild concentric LVH. Mild aortic sclerosis without stenosis. Left ventricular function is preserved at 60% with normal RV function. Mild tricuspid regurgitation. No pericardial effusion masses or vegetations.
[2025-03-11 20:00] VITALS: PULSE 77; RESP 18
[2025-03-11 21:00] VITALS: BP 148/98; PULSE 81; RESP 18; TEMP 98; O2SAT 94
[2025-03-11] MEDS: ATORVASTATIN 20 MG TAB PO SCH (22:42)
[2025-03-12] VITALS (8 sets, daily range): BP systolic 121–143; BP diastolic 78–93; PULSE 74–90; RESP 16–18; TEMP 98–98.3; O2SAT 94–97
[2025-03-12] MEDS: REGADENOSON 0.4 MG/5 ML SYRG IV ONE ×2 (09:06→12:06)
--- NOTE | 2025-03-12 16:06 | DVHSR ---
APPROVED REPORT Exam: Nuclear Stress Test BMI: 0 Stress Test Details HR Max Heart Rate (APMHR): 155.816407 bpm Target HR (85% APMHR): 131.353878 bpm BP ECG Stress ECG Conclusion NON ISCHEMIC CLINICAL RESPONSE NON ISCHEMIC ECG RESPONSE NON ISCHEMIC CARDIOLITE IMAGES EF >55% NM EXAM: Myocardial Perfusion REST/STRESS Imaging Protocol: Rest Tc-99m/Stress Tc-99m 1 day Resting Data Rest SPECT myocardial perfusion imaging was performed in supine position 60 minutes following the intravenous injection of 11.0 mCi of Tc-99m Sestamibi. Time of rest injection: 10:42 Date: 03/12/2025 Time of rest imagin:42 Date: 03/12/2025 Administration Route: IV Administration Site: Left Arm Pharmacologic Stress Pharmacologic stress test was performed by injecting Regadenoson 0.4 mg IV push followed by the intravenous injection of 28.3 mCi of Tc-99m Sestamibi. Time of stress injection: 12:10 Date: 03/12/2025 Time of stress imagin:10 Date: 03/12/2025 Administration Route: IV Administration Site: Left Arm Gated Stress SPECT was performed 60 minutes after stress injection. The images were gated to evaluate regional wall motion and calculate left ventricular ejection fraction. Stress only was performed in the Supine position. Nuclear Conclusion NON ISCHEMIC CLINICAL RESPONSE NON ISCHEMIC ECG RESPONSE NON ISCHEMIC CARDIOLITE IMAGES EF >55%
--- NOTE | 2025-03-12 16:10 | DVHPN2 ---
Subjective Overnight events noted. Patient just underwent Cardiolite stress test, currently denies any chest pain or shortness of breath. Reviewed: H&P Changes from previous H/P or p: No Changes Objective Vitals Vital Signs Date Time Temp Pulse Resp B/P (MAP) Pulse Ox O2 Delivery O2 Flow Rate FiO2 03/12/25 09:00 98.3 76 16 129/87 (101) 95 98.3 03/12/25 08:00 Room Air* 0 21 Intake/Output Intake and Output 03/12/25 07:00 Intake Total 1415 ml Output Total 1800 ml Balance -385 ml Intake Oral 1415 ml Output Urine Total 1800 ml Exam HEENT pupils are reactive Neck is supple neck CV is S1-S2 regular rate and rhythm Respiratory bilateral clear GI positive bowel sound Extremity no edema [employer] no motor deficit General Appearance: Alert, Oriented X3 HEENT: Atraumatic Lungs: Clear to auscultation Cardiovascular: Regular rate, Normal S2 Abdomen: Normal bowel sounds Medications Current Medications Medications Dose Ordered Sig/Florencia Route Start Time Stop Time Status Last Admin Dose Admin Aspirin 81 mg DAILY PO 03/11/25 10:00 03/11/25 10:17 81 MG Diagnostic Test (Pha) 1 strip ACHS 03/10/25 22:00 03/11/25 22:00 1 STRIP Insulin Human Regular ACHS SC 03/10/25 22:00 03/11/25 22:00 8 UNITS Dextrose 50 ml UD PRN IV 03/10/25 19:30 Ondansetron HCl 4 mg Q4HP PRN IV 03/10/25 19:30 03/10/25 23:08 4 MG Acetaminophen 650 mg Q6HP PRN PO 03/10/25 19:30 03/10/25 23:09 650 MG Nitroglycerin 0.4 mg Q5MINP PRN SL 03/10/25 20:00 Morphine Sulfate 2 mg Q30M PRN IV 03/10/25 20:00 03/12/25 00:53 2 MG Clonidine HCl 0.1 mg Q6HP PRN PO 03/11/25 00:15 03/11/25 00:14 0.1 MG Acetaminophen/ Hydrocodone Bitart 1 tab Q6HPRN PRN PO 03/11/25 01:00 03/12/25 06:04 1 TAB Atorvastatin Calcium 10 mg HS PO 03/11/25 22:00 03/11/25 22:42 10 MG Carvedilol 3.125 mg Q12HR PO 03/11/25 10:00 03/11/25 22:42 3.125 MG Sacubitril/ Valsartan 1 tab BID PO 03/11/25 10:00 03/11/25 22:42 1 TAB Laboratory Results Laboratory Tests 03/10/25 10:59 03/11/25 04:35 Urinalysis Test 03/10/25 12:05 Urine Color Light-yellow (Yellow) Urine Clarity Clear (Clear) Urine pH 7.5 (5.0-9.0) Urine Specific [place] 1.019 (1.001-1.035) Urine Protein Trace (Negative) H Urine Ketones 1+ (Negative) H Urine Blood Negative /uL (Negative) Urine Nitrite Negative (Negative) Urine Bilirubin Negative (Negative) Urine Urobilinogen 2 mg/dL (Negative) H Urine Leukocyte Esterase Negative /uL (Negative) Urine RBC 1 /hpf (0 - 3) Urine Microscopic WBC 1 /HPF (0-3) Urine Squamous Epithelial Cells Few /hpf (<5) Urine Bacteria None seen /hpf (None Seen) Urine Glucose 4+ mg/dL (Normal) H Assessment/Plan Assessment/Plan 64-year-old male with known history of hypertension, diabetes mellitus type 2, dyslipidemia Mental Health which has been found to have 1. Chest pain rule out acute DE, Cardiolite stress test to follow 2. Acute alcoholic intoxication 3. Hypertension 4 diabetes mellitus type 2 5. Dyslipidemia 6. Morbid obesity classI 7. Elevated D-dimer ruled out pulmonary embolism 8. Hepatic steatosis -continue current medication, follow up Cardiolite stress test, discharge plan once cleared by Cardiology. Plan discussed with: Patient Date of Service: Mar 12, 2025 Billing Provider: ELTON SCHULTZ MD Common Visit Codes: [id number] INP/OBS CARE(HIGH) ELTON SCHULTZ MD Mar 12, 2025 16:10
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
[2025-03-13] VITALS (7 sets, daily range): BP systolic 106–134; BP diastolic 76–92; PULSE 82–94; RESP 15–18; TEMP 36.6; O2SAT 94–97
--- NOTE | 2025-03-13 12:17 | ECG ---
[facility] Test Date: 2025-03-12 Test Time: 00:51:20 Pat Name: CRISTHIAN PUENTES Department: Room: 0212T A Gender: M Private Investigator: : 1960 Requested By: ELTON SCHULTZ Order Number: [id number] Reading MD: Festus Pickard Measurements Intervals [place] Rate: 85 P: -69 CO: 194 QRS: 11 QRSD: 81 T: 36 QT: 372 QTc: 443 Interpretive Statements Sinus or ectopic atrial rhythm Low voltage, extremity leads Electronically Signed On 03-15-2025 11:11:43 PST by Festus Pickard Please click the below link to view image of tracing.
--- NOTE | 2025-03-13 16:15 | DVHDS2 ---
Discharge Summary Date of Admission Mar 10, 2025 at 19:56 Date of Discharge: Mar 13, 2025 Labs/Diagnostic Data: Laboratory Results Test 03/13/25 12:03 03/12/25 01:36 03/11/25 11:03/11/25 04:35 POC Glucose 289 mg/dl (70-106) Troponin I High Sensitivity 3 ng/L (</=54) Prothrombin Time 12.3 sec (9.3-11.8) Prothrombin Time INR 1.18 (0.9-1.15) Activated Partial Thromboplast Time 25.0 SEC (24.5-34.5) Sodium Level 138 mmol/L (136-145) Potassium Level 4.2 mmol/L (3.5-5.1) Chloride Level 94 mmol/L (98-107) Carbon Dioxide Level 30 mmol/L (20-31) Anion Gap 14 (5-15) Blood Urea Nitrogen 8 mg/dL (9-23) Creatinine 0.98 mg/dL (0.700-1.30) Glomerular Filtration Rate Calc 86 mL/min (>90) BUN/Creatinine Ratio 8.2 (10.0-20.0) Serum Glucose 191 mg/dL (74-106) Hemoglobin A1c 8.5 % A1C (<5.7) Calcium Level 9.2 mg/dL (8.7-10.4) Triglycerides Level 80 mg/dL (< 150) Cholesterol Level 187 mg/dL (< 200) LDL Cholesterol 56 mg/dL (< 100) HDL Cholesterol 103 mg/dL (40-59) Thyroid Stimulating Hormone (TSH) 1.09 uIU/mL (0.55-4.78) Test 03/10/25 12:05 03/10/25 10:59 Urine Color Light-yellow (Yellow) Urine Clarity Clear (Clear) Urine pH 7.5 (5.0-9.0) Urine Specific [place] 1.019 (1.001-1.035) Urine Protein Trace (Negative) Urine Ketones 1+ (Negative) Urine Blood Negative /uL (Negative) Urine Nitrite Negative (Negative) Urine Bilirubin Negative (Negative) Urine Urobilinogen 2 mg/dL (Negative) Urine Leukocyte Esterase Negative /uL (Negative) Urine RBC 1 /hpf (0 - 3) Urine Microscopic WBC 1 /HPF (0-3) Urine Squamous Epithelial Cells Few /hpf (<5) Urine Bacteria None seen /hpf (None Seen) Urine Glucose 4+ mg/dL (Normal) Urine Opiates Screen Neg (NEGATIVE) Urine Fentanyl Screen Neg (NEGATIVE) Urine Barbiturates Screen Neg (NEGATIVE) Urine Phencyclidine Screen Neg (NEGATIVE) Urine Amphetamines Screen Neg (NEGATIVE) Urine Benzodiazepines Screen Neg (NEGATIVE) Urine Cocaine Screen Neg (NEGATIVE) Urine Cannabinoids Screen Neg (NEGATIVE) White Blood Count 3.6 10^3/uL (4.4-10.8) Red Blood Count 4.44 10^6/uL (4.5-5.90) Hemoglobin 14.5 g/dL (13.5-17.5) Hematocrit 41.6 % (41.0-53.0) Mean Corpuscular Volume 93.6 fL (80.0-100.0) Mean Corpuscular Hemoglobin 32.6 pg (28.0-32.0) Mean Corpuscular Hemoglobin Concent 34.8 g/dL (32.0-36.0) Red Cell Distribution Width 14.7 % (11.8-14.3) Platelet Count 150 10^3/uL (140-450) Mean Platelet Volume 8.1 fL (6.9-10.8) Neutrophils (%) (Auto) 60.1 % (37.0-80.0) Lymphocytes (%) (Auto) 27.9 % (10.0-50.0) Monocytes (%) (Auto) 9.7 % (0.0-12.0) Eosinophils (%) (Auto) 1.0 % (0.0-7.0) Basophils (%) (Auto) 1.3 % (0.0-2.0) Neutrophils # (Auto) 2.2 10 ^3/uL (1.6-8.6) Lymphocytes # (Auto) 1.0 10 ^3/uL (0.4-5.4) Monocytes # (Auto) 0.3 10 ^3/uL (0-1.3) Eosinophils # (Auto) 0 10 ^3/uL (0-0.8) Basophils # (Auto) 0 10 ^3/uL (0-0.2) Nucleated Red Blood Cells 0.2 % D-Dimer, Quantitative 1.23 mg/L FEU (0.0-0.49) B-Type Natriuretic Peptide 77.48 pg/mL (0-100) Plasma/Serum Blood Alcohol 204.4 mg/dL (<10) Other Laboratory Tests 03/11/25 04:35 03/10/25 10:59 Brief Hx & Hospital Course: 64-year-old male with known history of hypertension, diabetes mellitus type 2, dyslipidemia , alcoholism, morbid obesity classI who initially presents to hospital with chest pain found to have acute alcoholic intoxication. Patient also has elevated D-dimers, CT angio shows no evidence of PE. Patient was seen by Cardiology underwent Cardiolite stress test which was normal. Patient currently stable to be discharged with close follow-up as an outpatient with PCP and orthopedics for shoulder surgery. Patient being discharged in a stable condition. Complete alcoholic abstinence was recommended. Patient could understand verbalized understanding and agreeable to plan Condition at Discharge: Stable Final Diagnosis/Problems List 64-year-old male with known history of hypertension, diabetes mellitus type 2, dyslipidemia Mental Health which has been found to have 1. Chest pain rule out acute CA, Cardiolite stress test to follow 2. Acute alcoholic intoxication 3. Hypertension 4 diabetes mellitus type 2 5. Dyslipidemia 6. Morbid obesity classI 7. Elevated D-dimer ruled out pulmonary embolism 8. Hepatic steatosis Discharge Disposition: Home SNF Discharge Will this Physician continue t: No Discharge Instruct/Medications Diet: Cardiac 2g Na,low cholest Diet comment: 1999 ADA diet. Activity: No Restrictions, As Tolerated Follow Up/Referral: Please follow up with PCP in 1-2 weeks Medications: Resume home medications. Continued Medications: Amiodarone Hcl (Amiodarone Hcl) 200 Mg Tab 200 MG PO BID, TAB Atorvastatin Calcium (Atorvastatin Calcium) 10 Mg Tab 1 TAB PO DAILY, #30 TAB 5 Refills Cholecalciferol (Gnp Vitamin D) 1,000 Unit Tab 1000 UNIT PO, TAB Diclofenac Sodium (Topical) (Arthritis Pain Reliever) 1 % Gel 1 % EX, GEL Gabapentin (Gabapentin) 600 Mg Tab 1 TAB PO TID, #90 TAB 3 Refills Ibuprofen (Ibuprofen) 600 Mg Tab 1 TAB PO TID, #90 TAB Insulin Lispro (Humalog Pawan Kwikpen) 100 Unit/Ml Inj 100 UNIT SC, INJ Loratadine (Claritin) 10 Mg Tab 1 TAB PO DAILY, #30 TAB 5 Refills Metformin Hydrochloride (Metformin Hcl) 1,000 Mg Tab 1 TAB PO BID, #180 TAB 3 Refills Sacubitril-Valsartan (Entresto 24-26 mg) 1 Tab Tab 1 TAB PO, TAB Sennosides (Laxative Maximum Strength) 25 Mg Tab 25 MG PO, TAB Sildenafil Citrate (Sildenafil) 100 Mg Tab 100 MG PO, TAB Sitagliptin Phosphate (Januvia) 100 Mg Tab 1 TAB PO DAILY, #30 TAB 5 Refills Tamsulosin Hcl (Tamsulosin Hcl) 0.4 Mg Cap 1 CAP PO DAILY, #90 CAP 1 Refill Scheduled Amiodarone Hcl (Amiodarone Hcl), 200 MG PO BID, (Reported) Atorvastatin Calcium (Atorvastatin Calcium), 1 TAB PO DAILY, (Reported) Gabapentin (Gabapentin), 1 TAB PO TID, (Reported) Ibuprofen (Ibuprofen), 1 TAB PO TID, (Reported) Loratadine (Claritin), 1 TAB PO DAILY, (Reported) Metformin Hydrochloride (Metformin Hcl), 1 TAB PO BID, (Reported) Sitagliptin Phosphate (Januvia), 1 TAB PO DAILY, (Reported) Tamsulosin Hcl (Tamsulosin Hcl), 1 CAP PO DAILY, (Reported) Miscellaneous Medications Cholecalciferol (Gnp Vitamin D), 1,000 UNIT PO, (Reported) Diclofenac Sodium (Topical) (Arthritis Pain Reliever), 1 % EX, (Reported) Insulin Lispro (Humalog Pawan Kwikpen), 100 UNIT SC, (Reported) Sacubitril-Valsartan (Entresto 24-26 mg), 1 TAB PO, (Reported) Sennosides (Laxative Maximum Strength), 25 MG PO, (Reported) Sildenafil Citrate (Sildenafil), 100 MG PO, (Reported) Discharge Statement: "Patient was advised to return to the ER or call 911 if any headaches, dizziness, shortness of breath, chest pain, abdominal pain, bleeding, fevers, or worsening of medical condition. Patient was counseled about treatment plan, medications, possible side effects, patientverbalized understanding. All questions were answered to the best of my ability. This discharge took greater then 30 minutes in planning, reviewing documentation, counseling the patient, and discussing with other team members." ASSESSMENT ASSESSMENT Assessment 64-year-old male with known history of hypertension, diabetes mellitus type 2, dyslipidemia Mental Health which has been found to have 1. Chest pain rule out acute CA, Cardiolite stress test to follow 2. Acute alcoholic intoxication 3. Hypertension 4 diabetes mellitus type 2 5. Dyslipidemia 6. Morbid obesity classI 7. Elevated D-dimer ruled out pulmonary embolism 8. Hepatic steatosis Date of Service: Mar 13, 2025 Billing Provider: ELTON SCHULTZ MD Common Visit Codes: [id number] DISCH DAY >30min ELTON SCHULTZ MD Mar 13, 2025 16:15
== END 2025-03-13 18:50 | disposition home or self-care (01) | DRG 206 ==
LOC: EDBD 10:32 → ER 10:32 → OVERFLOW 19:56 → TELE-CENTR 19:56
PROVIDERS: ADMIT Internal Medicine; ATTEND Internal Medicine
DX: M94.0 Chondrocostal junction syndrome [Tietze] (principal); I50.9 Heart failure, unspecified; I11.0 Hypertensive heart disease with heart failure; I16.0 Hypertensive urgency; E11.9 Type 2 diabetes mellitus without complications; F10.120 Alcohol abuse with intoxication, uncomplicated; K76.0 Fatty (change of) liver, not elsewhere classified; E66.01 Morbid (severe) obesity due to excess calories; I16.9 Hypertensive crisis, unspecified; E78.5 Hyperlipidemia, unspecified; Y90.7 Blood alcohol level of 200-239 mg/100 ml; Z86.718 Personal history of other venous thrombosis and embolism; Z86.711 Personal history of pulmonary embolism; Z83.3 Family history of diabetes mellitus; Z68.32 Body mass index [BMI] 32.0-32.9, adult
CPT/HCPCS: 36415; 71045; 71275; 76705; 78452; 80048; 80061; 80307; 80320; 81001; 82962; 83036; 83880; 84443; 84484; 85025; 85379; 85610; 85730; 93005; 93017; 93306; 96374; 96375; 99291; G0378; J1815; J2405

== ENCOUNTER 2025-03-20 13:55 | Inpatient (IN) | payer OTHER, MEDICAID ==
[2025-03-20] VITALS (19 sets, daily range): BP systolic 64–148; BP diastolic 42–90; PULSE 61–82; RESP 12–18; TEMP 97.4–98.4; O2SAT 92–100
[~2025-03-20] VITALS: Ht 30.5 cm; Wt 91.9 kg
[~2025-03-20 13:55] MED LIST: AMIO200T33 PO; ATOR10TA52 PO; CHOL1TAB30 PO; DICL1GEL72 EX; GABA-339 PO; IBUP-1454 PO; INSU100I21 SC; LORA-622 PO; METF-372 PO; SACU1TAB PO; SENN25TA PO; SILD-60 PO; SITA100T7 PO; TAMS0.4C39 PO
[2025-03-20] MEDS ORDERED: HEPARIN DRIP/D5W 100UNITS/ML 250 ML IV SCH (16:00)
[2025-03-20] MEDS ORDERED: MORPHINE SULFATE INJ 2 MG/ml SYRG IV PRN (16:00)
[2025-03-20] MEDS ORDERED: hydrALAZINE HCL 20 MG/ML VL IV PRN (16:15)
[2025-03-20] MEDS ORDERED: DOCUSATE SOD 100 MG CAP PO PRN (16:15)
[2025-03-20] MEDS ORDERED: DEXTROSE (50%) 50ML SYRG IV PRN (16:15)
[2025-03-20] MEDS ORDERED: ONDANSETRON HCL 4 MG/2 ML VIAL IV PRN (16:15)
[2025-03-20] MEDS: HEPARIN SODIUM (PORCINE) 5000 UNITS/ML 1ML VIAL ONE (16:26)
[2025-03-20] MEDS: ANGIOMAX 250 MG VIAL IV ONE ×2 (16:26→17:40)
[2025-03-20] MEDS: fentaNYL CITRATE 100 MCG/2 ML VL ONE ×3 (16:26→19:40)
[2025-03-20] MEDS: MIDAZOLAM HCL 2MG/2ML 2ml VIAL (1mg/ml) ONE ×2 (16:26→19:40)
[2025-03-20] MEDS: VERAPAMIL 2.5MG/ML INJ 2ML VIAL IV ONE ×2 (16:26→19:41)
[2025-03-20] MEDS: SODIUM CHL 0.9% 50 ML ONE ×2 (16:27→17:40)
[2025-03-20] MEDS: LIDOCAINE 2%HCL (LOCAL ANESTH.) INJ 20ML MDV ONE ×2 (16:27→19:40)
[2025-03-20] MEDS: IODIXANOL 320MG/ML 100ML BTL IV ONE ×4 (16:31→19:37)
[2025-03-20] MEDS: HEPARIN IN NS 1000Units/500mL 1,500 ML ONE (16:31)
[2025-03-20] MEDS: EPTIFIBATIDE INJ (2MG/ML) 10ML VIAL IV ONE (17:09)
[2025-03-20] MEDS: CLOPIDOGREL BISULFATE 75 MG TAB ONE (17:42)
--- NOTE | 2025-03-20 17:45 | CONS ---
Pharmacy Clinical Information: PATIENT A DIRECT ADMIT FROM [facility] ALREADY ON HEPARIN DRIP AT RATE 1000 UNITS/HR ACS PROTOCOL, NO BOLUS, PATIENT WEIGHT 88.9 KG (BED SCALE) CONTINUE DRIP AT 1000 UNITS/HR; APTT SCHEDULED FOR 2200 PER RX PROTOCOL CONFIRMED WITH RN CHRISTOPHER VALDEZ PHARMACIST Mar 20, 2025 17:45
[2025-03-20] MEDS: InsuLIN REG 1unit/0.01ml Soln (100units/ml) SC SCH (18:00)
[2025-03-20] MEDS: ACCU-CHEK COMFORT CURVE STRIP VI SCH (18:00)
[2025-03-20] MEDS: NITROGLYCERIN 0.4 MG SL TAB SL PRN (18:47)
[2025-03-20] MEDS: NOREPINEPHRINE 8 MG/250ML KIT 250 ML IV ONE (19:01)
[2025-03-20] MEDS: EPTIFIBATIDE DRIP(0.75MG/ML) 100 ML IV ONE (19:23)
[2025-03-20] MEDS: EPTIFIBATIDE DRIP(0.75MG/ML) 100 ML IV SCH (19:30)
[2025-03-20 19:39] LABS: Hematocrit 43.6 % (41.0-53.0); Hemoglobin 14.8 g/dL (13.5-17.5); Mean Corpuscular Hemoglobin 32.9 pg (28.0-32.0); Mean Corpuscular Volume 97.1 fL (80.0-100.0); Nucleated Red Blood Cells % 0.1 %
[2025-03-20] MEDS: ONDANSETRON HCL 4 MG/2 ML VIAL ONE (19:52)
[2025-03-20 20:01] LABS: Prothrombin Time 47.6 sec (9.3-11.8)
[2025-03-20 20:10] LABS: INR 5.3 (0.9-1.15); Partial Thromboplastin Time 87.3 SEC (24.5-34.5)
--- NOTE | 2025-03-20 20:49 | DVHOP ---
DATE OF SURGERY: 03/20/2025 TECHNIQUES PERFORMED: * Emergency case. * Insertion of a 6-Macedonian arterial line in the right femoral artery. * Management of conscious sedation. * Right coronary angiography. * Mechanical thrombectomy of the right coronary artery with the Gaffney catheter. * Balloon angioplasty of the mid region of the right femoral artery with 3.0 x 12 mm length, noncompliant balloon. * Stenting and angioplasty of the mid region of the right coronary artery with 3.5 x 15 mm length [place] stent of [employer]. * Intravascular ultrasound of the right coronary artery. * Balloon angioplasty of right coronary artery stent with 3.5 x 8 mm length noncompliant balloon and major artery size up to 3.75 mm in size. * Intracoronary administration of the Integrilin. COMPLICATIONS: None. ASSISTANTS: Assisted by Jessica. Other assistants over here is Lucinda Jamison Brian. Today is 03/20/2025. INDICATIONS: The patient is having acute coronary syndrome, right femoral artery is in the range of 99% with thrombus formation, it looks like an acute plaque rupture. DESCRIPTION OF PROCEDURE: The procedure, risks and benefits discussed in a standard manner. The patient has been brought to the cathode builder. The right groin was shaved, was cleaned with soap and Betadine. A 6-Macedonian arterial line also had been placed, we have put a MAYS catheter, 6-Macedonian guiding catheter was placed. AngioMax was started. We have put Whisper wire MS and we were able to go in the distal region of the right coronary artery and subsequently now we have put Gaffney catheter, mechanical thrombectomy also had been done. Subsequently now, the patient was given intracoronary nicardipine 2 mL. Angiography was done and subsequently now we have put a balloon 3.0 x 12 mm noncompliant balloon. Balloon angioplasty was done in mid region of the right coronary artery, where balloon had been deflated. Balloon had been discontinued. Subsequently, we put a stent, A 3.5 x 15 mm length [place] stent of [employer], deployed in mid region of the right coronary artery and stent was gradually increased up to 17 atmosphere. The stent size was increased almost up to 3.5 mm plus in the size and inflated for a few times. Balloon deflated, balloon had been discontinued. Intravascular ultrasound was done. There was still some minor gap between the stent and media, so now we have put a noncompliant balloon and inflated 3.5 x 8 mm length and taken up to 17 and 27 atmospheres. The stent size was increased to more than 3.75 mm proximally, mid, and distally. Procedure went well. Angiography was done. Result was satisfactory. The balloon, wire and catheters all had been discontinued after giving the intracoronary Integrilin 10 mL bolus. CONCLUSION: * Prior to performing the procedure #1, the right coronary artery in the mid region is narrowed 99% with thrombus formation, type C lesion. * Postprocedure LIUDMILA grade 3 flow. Residual stenosis is 0%. No spasm. No dissection. No thrombosis. Procedure went well. PLAN OF ACTION: Advised for the patient to undergo the angioplasty, stenting of the left anterior descending artery. Alecia Salazar MD MP/TAPAN TID: [id number] RECEIPT: [id number]
--- NOTE | 2025-03-20 22:44 | DVHINCON2 ---
Date of service: Mar 20, 2025 Referring Physician Allan Kirby History of Present Illness This is a 64-year-old male who was initially referred to [facility] for left heart cath. The patient underwent left heart catheterization, [place] selective left and right coronary artery angiography. The patient was advised to be transferred to a higher level of medical center for further advanced treatment. The patient will need to undergo coronary revascularization. Therefore patient has been transferred here for continuation of care. Family History: Diabetes mellitus G8 MOTHER Allergies: Coded Allergies: NO KNOWN ALLERGIES (Unverified , 03/10/25) Home Meds Reported Medications Sennosides (Laxative Maximum Strength) 25 Mg Tab, 25 MG PO, TAB 03/11/25 Ibuprofen (Ibuprofen) 600 Mg Tab, 1 TAB PO TID, #90 TAB 03/11/25 Atorvastatin Calcium (ATORVASTATIN CALCIUM) 10 Mg Tab, 1 TAB PO DAILY, #30 TAB 5 Refills 03/11/25 Sacubitril-Valsartan (Entresto 24-26 mg) 1 Tab Tab, 1 TAB PO, TAB 03/11/25 Cholecalciferol (Gnp Vitamin D) 1,000 Unit Tab, 1000 UNIT PO, TAB 03/11/25 Metformin Hydrochloride (Metformin Hcl) 1,000 Mg Tab, 1 TAB PO BID, #180 TAB 3 Refills 03/11/25 Amiodarone Hcl (Amiodarone Hcl) 200 Mg Tab, 200 MG PO BID, TAB 03/11/25 Tamsulosin Hcl (Tamsulosin Hcl) 0.4 Mg Cap, 1 CAP PO DAILY, #90 CAP 1 Refill 03/11/25 Gabapentin (Gabapentin) 600 Mg Tab, 1 TAB PO TID, #90 TAB 3 Refills 03/11/25 Loratadine (Claritin) 10 Mg Tab, 1 TAB PO DAILY, #30 TAB 5 Refills 03/11/25 Insulin Lispro (Humalog Pawan Kwikpen) 100 Unit/Ml Inj, 100 UNIT SC, INJ 03/11/25 Diclofenac Sodium (Topical) (Arthritis Pain Reliever) 1 % Gel, 1 % EX, GEL 03/11/25 Sitagliptin Phosphate (Januvia) 100 Mg Tab, 1 TAB PO DAILY, #30 TAB 5 Refills 03/11/25 Sildenafil Citrate (Sildenafil) 100 Mg Tab, 100 MG PO, TAB 03/11/25 Current Medications Current Medications Medications (Trade) Dose Ordered Sig/Florencia Route PRN Reason Start Time Stop Time Status Last Admin Nitroglycerin (Ntrostat Sublingual) 0.4 mg Q5MINP PRN SL FOR CHEST PAIN 03/20/25 16:00 Morphine Sulfate 2 mg Q30M PRN IV FOR CHEST PAIN 03/20/25 16:00 Heparin Sodium/ Dextrose 250 ml @ 10 mls/hr Q24H IV 03/20/25 16:00 Sodium Chloride 1,000 ml @ 60 mls/hr [id number] IV 03/20/25 16:15 Acetaminophen/ Hydrocodone Bitart ([place] 5/325MG Tab) 1 tab Q4HP PRN PO MODERATE PAIN (4-6 PAIN SCALE) 03/20/25 16:15 Ondansetron HCl (Zofran) 4 mg Q4HP PRN IV NAUSEA / VOMITING 03/20/25 16:15 Docusate Sodium (Colace Capsule) 100 mg BIDPRN PRN PO FOR CONSTIPATION 03/20/25 16:15 Acetaminophen (Tylenol Tablet) 650 mg Q6HP PRN PO PAIN SCALE 1-3 OR TEMP>100.4 03/20/25 16:15 Morphine Sulfate 2 mg Q4HPRN PRN IV SEVERE PAIN (7-10 PAIN SCALE) 03/20/25 16:15 Diagnostic Test (Pha) (Accu-Chek Comfort Curve T) 1 strip Q6HR 03/20/25 18:00 Insulin Human Regular (InsuLIN R) Q6HR SC 03/20/25 18:00 Dextrose 50 ml UD PRN IV Blood Sugar LESS THAN 60 03/20/25 16:15 Hydralazine HCl (Apresoline Injection) 10 mg Q6HP PRN IV SBP>160 03/20/25 16:15 Atorvastatin Calcium (Lipitor) 80 mg HS PO 03/20/25 22:00 UNV Review of Systems All systems reviewed and negative Physical Exam GENERAL: Alert and oriented x 3. No acute distress. EYES: PERRL, EOMI. Anicteric. HENT: Moist mucous membranes. LUNGS: Clear to auscultation bilaterally. CARDIOVASCULAR: Regular rate and rhythm. ABDOMEN: Soft, nontender and nondistended. EXTREMITIES: No edema. NEUROLOGIC: No focal neurological deficits. SKIN: Warm, dry. Assessment Acute coronary syndrome. Unstable angina. Plan/Recommendation I agree with your ongoing assessment and care of plan. Cardiac Cath. Risks and benefits were discussed with the patient. Morphine and [place] for pain management. Aspirin, Lipitor, Plavix. Heparin drip per pharmacy. IV Hydralazine for SBP > 160. Additional plan as per the hospital course. A total of 45 minutes was spent reviewing the patient record, examining the patient, making a diagnostic and therapeutic plan, discussing this plan with medical personnel, following up on diagnostic studies and following the patient for clinical stability excluding any and all procedures. At least 50% of this time was spent in direct, [id number] contact. Plan discussed with: Patient KAYLA KIRBY MD Mar 20, 2025 17:44
[2025-03-20] MEDS: METOPROLOL TARTRATE 25 MG TAB PO SCH (22:57)
[2025-03-20] MEDS: ACETAMINOPHEN 325 MG TAB PO PRN (22:58)
[2025-03-20] MEDS: ATORVASTATIN 20 MG TAB PO SCH (22:58)
[2025-03-20 23:00] LABS: INR 1.29 (0.9-1.15); Partial Thromboplastin Time 46.4 SEC (24.5-34.5); Prothrombin Time 13.3 sec (9.3-11.8)
[2025-03-20] MEDS: SODIUM CHLORIDE 0.9% 1,000 ML IV SCH (23:36)
[2025-03-21] VITALS (30 sets, daily range): BP systolic 89–132; BP diastolic 45–77; PULSE 66–90; RESP 11–24; TEMP 97.7–99.2; O2SAT 93–100
[2025-03-21] MEDS: MORPHINE SULFATE INJ 2 MG/ml SYRG IV PRN (00:08)
[2025-03-21] MEDS: EPTIFIBATIDE DRIP(0.75MG/ML) 100 ML IV SCH (00:50)
[2025-03-21] MEDS: HYDROcodone-ACET 5/325MG TAB PO PRN (04:17)
[2025-03-21 05:01] LABS: Hematocrit 42.3 % (41.0-53.0); Hemoglobin 14.5 g/dL (13.5-17.5); Mean Corpuscular Hemoglobin 32.3 pg (28.0-32.0); Mean Corpuscular Volume 94.6 fL (80.0-100.0); Nucleated Red Blood Cells % 0.1 %
[2025-03-21 05:27] LABS: Albumin 4.1 g/dL (3.2-4.8); Anion Gap 12 (5-15); BUN/Creatinine Ratio 18.1 (10.0-20.0); Bilirubin, Total 0.9 mg/dL (0.2-1.0); Blood Urea Nitrogen 15 mg/dL (9-23); Calcium 9.0 mg/dL (8.7-10.4); Carbon Dioxide 24 mmol/L (20-31); Chloride 103 mmol/L (98-107); Potassium 4.1 mmol/L (3.5-5.1); Sodium 139 mmol/L (136-145); Total Protein 6.2 g/dL (5.7-8.2)
[2025-03-21 05:31] LABS: Alanine Aminotransferase 75 U/L (7-40); Alkaline Phosphatase 35 U/L (46-116); Glucose 132 mg/dL (74-106)
[2025-03-21] MEDS: CLOPIDOGREL BISULFATE 75 MG TAB PO SCH (08:43)
[2025-03-21] MEDS ORDERED: DEXTROSE (50%) 50ML SYRG IV PRN (09:00)
--- NOTE | 2025-03-21 09:02 | DVHHP2 ---
Admitting Diagnosis: Chest pain History of Present Illness This is a 64-year-old male who was initially referred to [facility] [place] for left heart cath. The patient underwent left heart catheterization, [place] selective left and right coronary artery angiography. The patient was advised to be transferred to a higher level of medical center for further advanced treatment. The patient will need to undergo coronary revascularization. Therefore patient has been transferred here for continuation of care. Cardiology consulted for left heart catheterization. Patient Family History: Diabetes mellitus G8 MOTHER Allergies: Coded Allergies: NO KNOWN ALLERGIES (Unverified , 03/10/25) Home Meds Reported Medications Sennosides (Laxative Maximum Strength) 25 Mg Tab, 25 MG PO, TAB 03/11/25 Ibuprofen (Ibuprofen) 600 Mg Tab, 1 TAB PO TID, #90 TAB 03/11/25 Atorvastatin Calcium (ATORVASTATIN CALCIUM) 10 Mg Tab, 1 TAB PO DAILY, #30 TAB 5 Refills 03/11/25 Sacubitril-Valsartan (Entresto 24-26 mg) 1 Tab Tab, 1 TAB PO, TAB 03/11/25 Cholecalciferol (Gnp Vitamin D) 1,000 Unit Tab, 1000 UNIT PO, TAB 03/11/25 Metformin Hydrochloride (Metformin Hcl) 1,000 Mg Tab, 1 TAB PO BID, #180 TAB 3 Refills 03/11/25 Amiodarone Hcl (Amiodarone Hcl) 200 Mg Tab, 200 MG PO BID, TAB 03/11/25 Tamsulosin Hcl (Tamsulosin Hcl) 0.4 Mg Cap, 1 CAP PO DAILY, #90 CAP 1 Refill 03/11/25 Gabapentin (Gabapentin) 600 Mg Tab, 1 TAB PO TID, #90 TAB 3 Refills 03/11/25 Loratadine (Claritin) 10 Mg Tab, 1 TAB PO DAILY, #30 TAB 5 Refills 03/11/25 Insulin Lispro (Humalog Pawan Kwikpen) 100 Unit/Ml Inj, 100 UNIT SC, INJ 03/11/25 Diclofenac Sodium (Topical) (Arthritis Pain Reliever) 1 % Gel, 1 % EX, GEL 03/11/25 Sitagliptin Phosphate (Januvia) 100 Mg Tab, 1 TAB PO DAILY, #30 TAB 5 Refills 03/11/25 Sildenafil Citrate (Sildenafil) 100 Mg Tab, 100 MG PO, TAB 03/11/25 Current Medications Current Medications Medications (Trade) Dose Ordered Sig/Florencia Route PRN Reason Start Time Stop Time Status Last Admin Nitroglycerin (Ntrostat Sublingual) 0.4 mg Q5MINP PRN SL FOR CHEST PAIN 03/20/25 16:00 03/20/25 18:47 Morphine Sulfate 2 mg Q30M PRN IV FOR CHEST PAIN 03/20/25 16:00 Heparin Sodium/ Dextrose 250 ml @ 10 mls/hr Q24H IV 03/20/25 16:00 03/20/25 20:33 DC Sodium Chloride 1,000 ml @ 60 mls/hr [id number] IV 03/20/25 16:15 03/20/25 23:36 Acetaminophen/ Hydrocodone Bitart ([place] 5/325MG Tab) 1 tab Q4HP PRN PO MODERATE PAIN (4-6 PAIN SCALE) 03/20/25 16:15 03/21/25 08:43 Ondansetron HCl (Zofran) 4 mg Q4HP PRN IV NAUSEA / VOMITING 03/20/25 16:15 Docusate Sodium (Colace Capsule) 100 mg BIDPRN PRN PO FOR CONSTIPATION 03/20/25 16:15 Acetaminophen (Tylenol Tablet) 650 mg Q6HP PRN PO PAIN SCALE 1-3 OR TEMP>100.4 03/20/25 16:15 03/20/25 22:58 Morphine Sulfate 2 mg Q4HPRN PRN IV SEVERE PAIN (7-10 PAIN SCALE) 03/20/25 16:15 03/21/25 00:08 Diagnostic Test (Pha) (Accu-Chek Comfort Curve T) 1 strip Q6HR 03/20/25 18:00 03/21/25 06:03 Insulin Human Regular (InsuLIN R) Q6HR SC 03/20/25 18:00 03/21/25 00:17 Dextrose 50 ml UD PRN IV Blood Sugar LESS THAN 60 03/20/25 16:15 Hydralazine HCl (Apresoline Injection) 10 mg Q6HP PRN IV SBP>160 03/20/25 16:15 Atorvastatin Calcium (Lipitor) 80 mg HS PO 03/20/25 22:00 03/20/25 22:58 Eptifibatide 100 ml @ 14 mls/hr Q7H9M IV 03/20/25 19:30 03/20/25 20:33 DC 03/20/25 19:30 Eptifibatide 100 ml @ 14 mls/hr Q7H9M IV 03/20/25 20:30 03/21/25 07:00 DC 03/21/25 00:50 Clopidogrel Bisulfate (Plavix) 75 mg DAILY PO 03/21/25 10:00 03/21/25 08:43 Aspirin 81 mg DAILY PO 03/21/25 10:00 03/21/25 08:44 Metoprolol Tartrate (Lopressor Tablet) 25 mg BID PO 03/20/25 22:00 03/21/25 08:43 Vital Signs Vital Signs Date Time Temp Pulse Resp B/P (MAP) Pulse Ox O2 Delivery O2 Flow Rate FiO2 03/21/25 08:43 74 133/79 03/21/25 08:00 12 99 Nasal Cannula* 1 24 03/21/25 04:00 98.7 98.7 Physical Exam General-64 years old male, overweight, lying in bed. No apparent distress HEENT-atraumatic normocephalic Heart-regular rate and rhythm Lungs clear to auscultate Abdomen soft nontender nondistended Musculoskeletal-no edema cyanosis Neuro-AO x3, no focal deficit SEPSIS Sepsis Screen Physician Orders Admit (03/20/25 15:59) Nitroglycerin Sublingual (Ntrostat Subli (03/20/25 16:00) Morphine Sulfate Injection (03/20/25 16:00) Notify Of Changes From Base (03/20/25 15:59) Clinical Registered Nurse For 24 Hours (03/20/25 15:59) Oxygen By Nasal Cannula (03/20/25 15:59) Platelet Monitoring (03/20/25 15:59) Heparin Per Standardized Proce (03/20/25 15:59) Discontinue All Im Injections (03/20/25 15:59) Store Specialist: Obtain Consent For: (03/20/25 15:59) Obtain Consent For Anesthesia (03/20/25 15:59) Stat Ekg For Chest Pain (03/20/25 15:59) Code Status (03/20/25 16:10) Sodium Chloride 0.9% (03/20/25 16:15) Hydrocodone-Acet 5/325mg Tab ([place] 5/32 (03/20/25 16:15) Ondansetron Hcl (Zofran) (03/20/25 16:15) Docusate Sodium Capsule (Colace Capsule) (03/20/25 16:15) Condition: Serious (03/20/25 16:10) Acetaminophen Tablet (Tylenol Tablet) (03/20/25 16:15) Morphine Sulfate Injection (03/20/25 16:15) Glucose Blood (Accu-Chek Comfort Curve T (03/20/25 18:00) Insulin R (Human) (Insulin R) (03/20/25 18:00) Dextrose 50% Syringe (03/20/25 16:15) Hydralazine Injection (Apresoline Inject (03/20/25 16:15) Cl Left Heart Cath (03/20/25 16:31) Atorvastatin (Lipitor) (03/20/25 22:00) Electrocardigram (03/20/25 18:44) Electrocardigram (03/20/25 19:03) Cl Left Heart Cath (03/20/25 19:13) Transfer Orders (03/20/25 19:24) Post Cath Vital Signs Q 15min (03/20/25 18:30) Post Cath Activity Protocol (03/20/25 18:30) Flat In Bed (03/20/25 20:30) Communication Order (03/20/25 21:30) Clopidogrel Bisulfate (Plavix) (03/21/25 10:00) Aspirin Tablet (03/21/25 10:00) Metoprolol Tartrate Tablet (Lopressor Ta (03/20/25 22:00) Mrsa Screen (03/20/25 22:43) * Endocrinology Consult (03/20/25 22:54) Cardiac Diet-2gna,Lofat,Lochol (03/21/25 Breakfast) Glucose Blood (Accu-Chek Comfort Curve T (03/21/25 11:30) Bedtime Insulin Scale (03/21/25 22:00) Moderate Insulin Ss (03/21/25 11:30) Dextrose 50% Syringe (03/21/25 09:00) Vital Signs Date Time Temp Pulse Resp B/P (MAP) Pulse Ox O2 Delivery O2 Flow Rate FiO2 03/21/25 08:43 74 133/79 03/21/25 08:00 70 12 99 Nasal Cannula* 1 24 03/21/25 08:00 70 13 127/72 (90) 98 03/21/25 07:56 68 03/21/25 07:56 68 03/21/25 07:56 11 100 Nasal Cannula* 1 24 03/21/25 07:00 68 15 126/68 (87) 98 03/21/25 06:00 74 12 132/75 (94) 100 03/21/25 06:00 74 03/21/25 05:59 16 100 Nasal Cannula* 1 24 03/21/25 05:00 66 16 122/72 (89) 100 03/21/25 04:00 98.7 67 15 118/70 (86) 100 98.7 03/21/25 04:00 68 03/21/25 03:59 15 100 Nasal Cannula* 1 24 03/21/25 03:00 70 22 118/71 (87) 100 03/21/25 02:00 70 24 116/64 (81) 100 03/21/25 02:00 70 03/21/25 02:00 24 100 Nasal Cannula* 1 24 03/21/25 01:00 69 12 115/72 (86) 100 03/21/25 00:38 67 13 111/71 03/21/25 00:08 68 15 118/72 03/21/25 00:00 98.9 68 15 118/72 (87) 100 98.9 03/21/25 00:00 71 03/20/25 23:59 17 100 Nasal Cannula* 1 24 03/20/25 23:57 69 126/71 03/20/25 23:00 75 17 132/74 (93) 98 03/20/25 22:57 76 142/77 03/20/25 22:00 80 03/20/25 22:00 80 18 133/76 (95) 95 03/20/25 21:59 13 92 Room Air* 0 21 03/20/25 21:27 98.4 82 13 142/84 (103) 92 98.4 03/20/25 21:27 82 13 92 Room Air* 0 21 03/20/25 21:27 82 03/20/25 21:08 77 15 126/89 (101) 93 03/20/25 20:53 79 14 137/76 (96) 93 03/20/25 20:41 176/90 03/20/25 20:38 80 15 148/84 (105) 95 03/20/25 20:23 79 15 141/90 (107) 95 03/20/25 19:20 97.4 61 15 138/77 (97) 97 97.4 03/20/25 19:05 97.4 61 15 126/82 (97) 97 97.4 03/20/25 18:58 97.4 61 15 75/52 (60) 97 97.4 03/20/25 18:57 97.4 61 15 64/42 (49) 97 97.4 03/20/25 18:56 97.4 73 15 79/55 (63) 97 97.4 03/20/25 18:50 97.4 73 15 130/60 (83) 97 97.4 03/20/25 18:47 132/61 03/20/25 18:35 97.4 76 14 132/61 (84) 97 97.4 03/20/25 17:56 132/61 03/20/25 17:16 68 12 96 Room Air* 0 21 03/20/25 15:35 98.3 68 12 127/80 (96) 96 98.3 Laboratory Tests Test 03/20/25 19:05 03/21/25 03:41 White Blood Count 5.1 10^3/uL (4.4-10.8) 5.1 10^3/uL (4.4-10.8) Medications Medications Dose Ordered Sig/Florencia Route Start Time Stop Time Status Last Admin Dose Admin Aspirin 81 mg DAILY PO 03/21/25 10:00 03/21/25 08:44 Atorvastatin Calcium 80 mg HS PO 03/20/25 22:00 03/20/25 22:58 Clopidogrel Bisulfate 75 mg DAILY PO 03/21/25 10:00 03/21/25 08:43 Metoprolol Tartrate 25 mg BID PO 03/20/25 22:00 03/21/25 08:43 Results Labs Test 03/21/25 06:00 03/21/25 03:41 03/20/25 22:09 Range/Units POC Glucose 130 H 70-106 mg/dl White Blood Count 5.1 4.4-10.8 10^3/uL Red Blood Count 4.48 L 4.5-5.90 10^6/uL Hemoglobin 14.5 13.5-17.5 g/dL Hematocrit 42.3 41.0-53.0 % Mean Corpuscular Volume 94.6 80.0-100.0 fL Mean Corpuscular Hemoglobin 32.3 H 28.0-32.0 pg Mean Corpuscular Hemoglobin Concent 34.1 32.0-36.0 g/dL Red Cell Distribution Width 14.5 H 11.8-14.3 % Platelet Count 216 140-450 10^3/uL Mean Platelet Volume 8.5 6.9-10.8 fL Neutrophils (%) (Auto) 59.3 37.0-80.0 % Lymphocytes (%) (Auto) 26.7 10.0-50.0 % Monocytes (%) (Auto) 12.5 H 0.0-12.0 % Eosinophils (%) (Auto) 1.0 0.0-7.0 % Basophils (%) (Auto) 0.5 0.0-2.0 % Neutrophils # (Auto) 3.1 1.6-8.6 10 ^3/uL Lymphocytes # (Auto) 1.4 0.4-5.4 10 ^3/uL Monocytes # (Auto) 0.6 0-1.3 10 ^3/uL Eosinophils # (Auto) 0 0-0.8 10 ^3/uL Basophils # (Auto) 0 0-0.2 10 ^3/uL Nucleated Red Blood Cells 0.1 % Sodium Level 139 136-145 mmol/L Potassium Level 4.1 3.5-5.1 mmol/L Chloride Level 103 98-107 mmol/L Carbon Dioxide Level 24 20-31 mmol/L Anion Gap 12 5-15 Blood Urea Nitrogen 15 9-23 mg/dL Creatinine 0.83 0.700-1.30 mg/dL Glomerular Filtration Rate Calc 97 >90 mL/min BUN/Creatinine Ratio 18.1 10.0-20.0 Serum Glucose 132 H 74-106 mg/dL Calcium Level 9.0 8.7-10.4 mg/dL Total Bilirubin 0.9 0.2-1.0 mg/dL Aspartate Amino Transferase (AST) 41 H 13-40 U/L Alanine Aminotransferase (ALT) 75 H 7-40 U/L Alkaline Phosphatase 35 L 46-116 U/L Total Protein 6.2 5.7-8.2 g/dL Albumin 4.1 3.2-4.8 g/dL Prothrombin Time 13.3 H 9.3-11.8 sec Prothrombin Time INR 1.29 H 0.9-1.15 Activated Partial Thromboplast Time 46.4 H 24.5-34.5 SEC Primary Diagnosis Acute coronary syndrome Unstable angina Plan Cardiology Dr. Salazar consulted for cardiac catheterization. Recommendation appreciated Continue aspirin 80 I q.day, Plavix, Lipitor Heparin drip per pharmacy IV hydralazine SBP 160 Monitor for chest pain Full code Plan discussed with: Patient Date of Service: Mar 21, 2025 Billing Provider: AMA ZAPIEN MD Common Visit Codes: [id number] INP/OBS CARE (HIGH) AMA ZAPIEN MD Mar 21, 2025 09:02
[2025-03-21] MEDS: SITAGLIPTIN PHOSPHATE PO SCH (09:33)
--- NOTE | 2025-03-21 09:35 | DVHINCON2 ---
Date of service: Mar 21, 2025 History of Present Illness 64yo M w/ hx of CAD, type II DM. Patient was initially referred to [facility] for left heart cath. The patient underwent left heart catheterization, [place] selective left and right coronary artery angiography. The patient was advised to be transferred to a higher level of medical center for further advanced treatment. Regarding hx of DM, patient as an outpatient is maintained on glargine and lispro of unclear doses. A1c not on file. Upon presentation labs notable for Family History: Diabetes mellitus G8 MOTHER Allergies: Coded Allergies: NO KNOWN ALLERGIES (Unverified , 03/10/25) Home Meds Reported Medications Sennosides (Laxative Maximum Strength) 25 Mg Tab, 25 MG PO, TAB 03/11/25 Ibuprofen (Ibuprofen) 600 Mg Tab, 1 TAB PO TID, #90 TAB 03/11/25 Atorvastatin Calcium (ATORVASTATIN CALCIUM) 10 Mg Tab, 1 TAB PO DAILY, #30 TAB 5 Refills 03/11/25 Sacubitril-Valsartan (Entresto 24-26 mg) 1 Tab Tab, 1 TAB PO, TAB 03/11/25 Cholecalciferol (Gnp Vitamin D) 1,000 Unit Tab, 1000 UNIT PO, TAB 03/11/25 Metformin Hydrochloride (Metformin Hcl) 1,000 Mg Tab, 1 TAB PO BID, #180 TAB 3 Refills 03/11/25 Amiodarone Hcl (Amiodarone Hcl) 200 Mg Tab, 200 MG PO BID, TAB 03/11/25 Tamsulosin Hcl (Tamsulosin Hcl) 0.4 Mg Cap, 1 CAP PO DAILY, #90 CAP 1 Refill 03/11/25 Gabapentin (Gabapentin) 600 Mg Tab, 1 TAB PO TID, #90 TAB 3 Refills 03/11/25 Loratadine (Claritin) 10 Mg Tab, 1 TAB PO DAILY, #30 TAB 5 Refills 03/11/25 Insulin Lispro (Humalog Pawan Kwikpen) 100 Unit/Ml Inj, 100 UNIT SC, INJ 03/11/25 Diclofenac Sodium (Topical) (Arthritis Pain Reliever) 1 % Gel, 1 % EX, GEL 03/11/25 Sitagliptin Phosphate (Januvia) 100 Mg Tab, 1 TAB PO DAILY, #30 TAB 5 Refills 03/11/25 Sildenafil Citrate (Sildenafil) 100 Mg Tab, 100 MG PO, TAB 03/11/25 Current Medications Current Medications Medications (Trade) Dose Ordered Sig/Florencia Route PRN Reason Start Time Stop Time Status Last Admin Nitroglycerin (Ntrostat Sublingual) 0.4 mg Q5MINP PRN SL FOR CHEST PAIN 03/20/25 16:00 03/20/25 18:47 Morphine Sulfate 2 mg Q30M PRN IV FOR CHEST PAIN 03/20/25 16:00 Heparin Sodium/ Dextrose 250 ml @ 10 mls/hr Q24H IV 03/20/25 16:00 03/20/25 20:33 DC Sodium Chloride 1,000 ml @ 60 mls/hr [id number] IV 03/20/25 16:15 03/20/25 23:36 Acetaminophen/ Hydrocodone Bitart ([place] 5/325MG Tab) 1 tab Q4HP PRN PO MODERATE PAIN (4-6 PAIN SCALE) 03/20/25 16:15 03/21/25 08:43 Ondansetron HCl (Zofran) 4 mg Q4HP PRN IV NAUSEA / VOMITING 03/20/25 16:15 Docusate Sodium (Colace Capsule) 100 mg BIDPRN PRN PO FOR CONSTIPATION 03/20/25 16:15 Acetaminophen (Tylenol Tablet) 650 mg Q6HP PRN PO PAIN SCALE 1-3 OR TEMP>100.4 03/20/25 16:15 03/20/25 22:58 Morphine Sulfate 2 mg Q4HPRN PRN IV SEVERE PAIN (7-10 PAIN SCALE) 03/20/25 16:15 03/21/25 00:08 Diagnostic Test (Pha) (Accu-Chek Comfort Curve T) 1 strip Q6HR 03/20/25 18:00 03/21/25 09:10 DC 03/21/25 06:03 Insulin Human Regular (InsuLIN R) Q6HR SC 03/20/25 18:00 03/21/25 09:10 DC 03/21/25 00:17 Dextrose 50 ml UD PRN IV Blood Sugar LESS THAN 60 03/20/25 16:15 Hydralazine HCl (Apresoline Injection) 10 mg Q6HP PRN IV SBP>160 03/20/25 16:15 Atorvastatin Calcium (Lipitor) 80 mg HS PO 03/20/25 22:00 03/20/25 22:58 Eptifibatide 100 ml @ 14 mls/hr Q7H9M IV 03/20/25 19:30 03/20/25 20:33 DC 03/20/25 19:30 Eptifibatide 100 ml @ 14 mls/hr Q7H9M IV 03/20/25 20:30 03/21/25 07:00 DC 03/21/25 00:50 Clopidogrel Bisulfate (Plavix) 75 mg DAILY PO 03/21/25 10:00 03/21/25 08:43 Aspirin 81 mg DAILY PO 03/21/25 10:00 03/21/25 08:44 Metoprolol Tartrate (Lopressor Tablet) 25 mg BID PO 03/20/25 22:00 03/21/25 08:43 Diagnostic Test (Pha) (Accu-Chek Comfort Curve T) 1 strip ACHS 03/21/25 11:30 Insulin Human Lispro (HumaLOG) HS SC 03/21/25 22:00 Insulin Human Lispro (HumaLOG) AC SC 03/21/25 11:30 Dextrose 50 ml UD PRN IV Blood Sugar LESS THAN 60 03/21/25 09:00 Cholecalciferol (Vitamin D3 Tablet) 1,000 unit DAILY PO 03/21/25 10:00 Sacubitril/ Valsartan (Entresto 24-26 Mg tab) 1 tab BID PO 03/21/25 10:00 Tamsulosin HCl (Flomax) 0.4 mg DAILY PO 03/21/25 10:00 Patient Own Medication 1 tab DAILY PO 03/21/25 10:00 Vital Signs Vital Signs Date Time Temp Pulse Resp B/P (MAP) Pulse Ox O2 Delivery O2 Flow Rate FiO2 03/21/25 09:00 69 14 128/72 (90) 98 03/21/25 08:00 Nasal Cannula* 1 24 03/21/25 08:00 98.6 98.6 Labs/Diagnostic Data Labs Test 03/21/25 06:00 03/21/25 03:41 03/20/25 22:09 Range/Units POC Glucose 130 H 70-106 mg/dl White Blood Count 5.1 4.4-10.8 10^3/uL Red Blood Count 4.48 L 4.5-5.90 10^6/uL Hemoglobin 14.5 13.5-17.5 g/dL Hematocrit 42.3 41.0-53.0 % Mean Corpuscular Volume 94.6 80.0-100.0 fL Mean Corpuscular Hemoglobin 32.3 H 28.0-32.0 pg Mean Corpuscular Hemoglobin Concent 34.1 32.0-36.0 g/dL Red Cell Distribution Width 14.5 H 11.8-14.3 % Platelet Count 216 140-450 10^3/uL Mean Platelet Volume 8.5 6.9-10.8 fL Neutrophils (%) (Auto) 59.3 37.0-80.0 % Lymphocytes (%) (Auto) 26.7 10.0-50.0 % Monocytes (%) (Auto) 12.5 H 0.0-12.0 % Eosinophils (%) (Auto) 1.0 0.0-7.0 % Basophils (%) (Auto) 0.5 0.0-2.0 % Neutrophils # (Auto) 3.1 1.6-8.6 10 ^3/uL Lymphocytes # (Auto) 1.4 0.4-5.4 10 ^3/uL Monocytes # (Auto) 0.6 0-1.3 10 ^3/uL Eosinophils # (Auto) 0 0-0.8 10 ^3/uL Basophils # (Auto) 0 0-0.2 10 ^3/uL Nucleated Red Blood Cells 0.1 % Sodium Level 139 136-145 mmol/L Potassium Level 4.1 3.5-5.1 mmol/L Chloride Level 103 98-107 mmol/L Carbon Dioxide Level 24 20-31 mmol/L Anion Gap 12 5-15 Blood Urea Nitrogen 15 9-23 mg/dL Creatinine 0.83 0.700-1.30 mg/dL Glomerular Filtration Rate Calc 97 >90 mL/min BUN/Creatinine Ratio 18.1 10.0-20.0 Serum Glucose 132 H 74-106 mg/dL Calcium Level 9.0 8.7-10.4 mg/dL Total Bilirubin 0.9 0.2-1.0 mg/dL Aspartate Amino Transferase (AST) 41 H 13-40 U/L Alanine Aminotransferase (ALT) 75 H 7-40 U/L Alkaline Phosphatase 35 L 46-116 U/L Total Protein 6.2 5.7-8.2 g/dL Albumin 4.1 3.2-4.8 g/dL Prothrombin Time 13.3 H 9.3-11.8 sec Prothrombin Time INR 1.29 H 0.9-1.15 Activated Partial Thromboplast Time 46.4 H 24.5-34.5 SEC Assessment 1. Uncontrolled type 2 diabetes mellitus with hyperglycemia 2. Coronary artery disease 3. Hepatocellular liver injury Moderate intensity correctional lispro ACHS [id number] blood glucose ACHS Hypoglycemia protocol Order A1c Plan discussed with: Other (nurse) POLA ORTIZ MD Mar 21, 2025 09:35
[2025-03-21] MEDS: SACUBITRIL-VALSARTAN 24mg/26mg TAB PO SCH (09:37)
[2025-03-21] MEDS: CHOLECALCIFEROL (VITD3) 1,000UNIT=25mCg TAB PO SCH (09:38)
[2025-03-21] MEDS: TAMSULOSIN HYDROCHLORIDE 0.4 MG CAP PO SCH (09:38)
[2025-03-21] MEDS: ACCU-CHEK COMFORT CURVE STRIP VI SCH (11:26)
[2025-03-21] MEDS: INSULIN LISPRO (HUMAN) 100 UNITS/ML ML SC SCH ×2 (11:26→21:27)
--- NOTE | 2025-03-21 21:23 | DVHPN2 ---
Progress Note - Dictate Date Seen: Mar 21, 2025 Medical Necessity Reason Pt with a Central, PICC or Fol: No Subjective Patient was seen and evaluated in follow up in the ICU. Patient underwent right coronary angiography, mechanical thrombectomy of the right coronary artery with the [place] catheter, balloon angioplasty of the mid region of the right femoral artery, stenting and angioplasty of the mid region of the right coronary artery, balloon angioplasty of right coronary artery stent, prior to performing the procedure #1, the right coronary artery in the mid region is narrowed 99% with thrombus formation, type C lesion. Postprocedure LIUDMILA grade 3 flow. Residual stenosis is 0%. No spasm. No dissection. No thrombosis. Procedure went well. Advised for the patient to undergo the angioplasty, stenting of the left anterior descending artery. vital signs Vital Sign Date Time Temp Pulse Resp B/P (MAP) Pulse Ox O2 Delivery O2 Flow Rate FiO2 03/21/25 13:56 15 93 Nasal Cannula* 1 24 03/21/25 13:56 72 03/21/25 13:00 118/74 (89) 03/21/25 12:00 98.6 98.6 Total Intake and Output 03/20/25 03/20/25 03/21/25 15:00 23:00 07:00 Intake Total 638 ml Output Total 900 ml Balance -262 ml medications Current Medications Medications Dose Ordered Sig/Florencia Route Start Time Stop Time Status Last Admin Dose Admin Nitroglycerin 0.4 mg Q5MINP PRN SL 03/20/25 16:00 03/20/25 18:47 0.4 MG Morphine Sulfate 2 mg Q30M PRN IV 03/20/25 16:00 Sodium Chloride 1,000 ml @ 60 mls/hr [id number] IV 03/20/25 16:15 03/20/25 23:36 60 MLS/HR Acetaminophen/ Hydrocodone Bitart 1 tab Q4HP PRN PO 03/20/25 16:15 03/21/25 08:43 1 TAB Ondansetron HCl 4 mg Q4HP PRN IV 03/20/25 16:15 Docusate Sodium 100 mg BIDPRN PRN PO 03/20/25 16:15 Acetaminophen 650 mg Q6HP PRN PO 03/20/25 16:15 03/20/25 22:58 650 MG Morphine Sulfate 2 mg Q4HPRN PRN IV 03/20/25 16:15 03/21/25 00:08 2 MG Dextrose 50 ml UD PRN IV 03/20/25 16:15 Hydralazine HCl 10 mg Q6HP PRN IV 03/20/25 16:15 Atorvastatin Calcium 80 mg HS PO 03/20/25 22:00 03/20/25 22:58 80 MG Clopidogrel Bisulfate 75 mg DAILY PO 03/21/25 10:00 03/21/25 08:43 75 MG Aspirin 81 mg DAILY PO 03/21/25 10:00 03/21/25 08:44 81 MG Metoprolol Tartrate 25 mg BID PO 03/20/25 22:00 03/21/25 08:43 25 MG Diagnostic Test (Pha) 1 strip ACHS 03/21/25 11:30 03/21/25 11:26 1 STRIP Insulin Human Lispro HS SC 03/21/25 22:00 Insulin Human Lispro AC SC 03/21/25 11:30 03/21/25 11:26 6 UNITS Dextrose 50 ml UD PRN IV 03/21/25 09:00 Cholecalciferol 1,000 unit DAILY PO 03/21/25 10:00 03/21/25 09:38 1,000 UNIT Sacubitril/ Valsartan 1 tab BID PO 03/21/25 10:00 03/21/25 09:37 1 TAB Tamsulosin HCl 0.4 mg DAILY PO 03/21/25 10:00 03/21/25 09:38 0.4 MG Patient Own Medication 1 tab DAILY PO 03/21/25 10:00 objective GENERAL: Alert and oriented x 3. No acute distress. EYES: PERRL, EOMI. Anicteric. HENT: Moist mucous membranes. LUNGS: Clear to auscultation bilaterally. CARDIOVASCULAR: Regular rate and rhythm. ABDOMEN: Soft, nontender and nondistended. EXTREMITIES: No edema. NEUROLOGIC: No focal neurological deficits. SKIN: Warm, dry. laboratory and microbiology Laboratory Tests 03/21/25 03:41 Test 03/21/25 03:41 Range/Units Serum Glucose 132 H 74-106 mg/dL Problem List Acute coronary syndrome. Unstable angina. Assessment/Plan Continued all current supportive medical care. Morphine and [place] for pain management. Aspirin, Metoprolol, Plavix. IV Hydralazine for SBP > 160. Additional plan as per the hospital course. Critical care time of 45 minutes provided to include time spent evaluation of patient at bedside, when appropriate patient/family education for diagnosis, treatment plan, review of pertinent medical information and discussion of care with specialty providers and PCP. Plan discussed with: Patient KAYLA KIRBY MD Mar 21, 2025 14:29
[2025-03-22] VITALS (8 sets, daily range): BP systolic 98–134; BP diastolic 62–91; PULSE 73–92; RESP 14–18; TEMP 97.3–98.3; O2SAT 93–97
--- NOTE | 2025-03-22 07:22 | ECG ---
[facility] [place] Test Date: 2025-03-20 Test Time: 19:02:14 Pat Name: CRISTHIAN PUENTES Department: Room: 0245T A Gender: M Tearoom Hostess: LIANA : 1960 Requested By: KAYLA KIRBY Order Number: [id number] Reading MD: Festus Pickard Measurements Intervals [place] Rate: 71 P: 62 ND: 222 QRS: 42 QRSD: 70 T: 51 QT: 420 QTc: 456 Interpretive Statements Sinus rhythm with 1st degree AV block Low voltage QRS Electronically Signed On 03-23-2025 17:19:59 PST by Festus Pickard Please click the below link to view image of tracing.
--- NOTE | 2025-03-22 07:22 | ECG ---
[facility] Test Date: 2025-03-20 Test Time: 18:41:06 Pat Name: CRISTHIAN PUENTES Department: Room: 0245T A Gender: M Sticker On: Miguel : 1960 Requested By: KAYLA KIRBY Order Number: [id number] Reading MD: Festus Pickard Measurements Intervals [place] Rate: 77 P: 62 CT: 224 QRS: 33 QRSD: 74 T: 52 QT: 404 QTc: 457 Interpretive Statements Sinus rhythm with 1st degree AV block Low voltage QRS Electronically Signed On 03-23-2025 17:19:57 PST by Festus Pickard Please click the below link to view image of tracing.
--- NOTE | 2025-03-22 08:23 | DVHOP ---
DATE OF SURGERY: 03/20/2025 TECHNIQUE PERFORMED: * Emergency case. * Insertion of a 6-Ukrainian arterial line in the right femoral artery. * Fluoroscopic guidance and supervision. * [place] selective left and right coronary artery angiography. ASSISTANTS: Assisted by our staff here is Joce Lopez Carmira, Angela. INDICATIONS: The patient has been transferred from [facility] for acute coronary syndrome. DESCRIPTION OF PROCEDURE: Risks and benefits discussed in a standard manner. The right groin was shaved, cleaned with soap and Betadine. in the right femoral artery was punctured line was placed. Subsequently, we put MAYS catheter in the left groin and we were able to do the right coronary angiography with the help of the JL4 catheter at the end of the procedure, we were able to do also the left coronary angiography. IMPRESSION: * There was normal left main. * Right radial artery proximally have underlying 90% stenosis. Another proximal lesion is in the range of 90%. There is underlying dissection flap that has been noted from the proximal to mid region of the left anterior descending artery. * Circumflex artery is a non-dominant artery. * Right coronary artery is a very large dominant artery. Right coronary artery in the mid region is narrowed 99% with underlying thrombus type of the formation. PLAN OF ACTION: I advised the patient to undergo intervention on the coronary artery. Alecia Salazar MD MP/MIGUE/LESLIE TID: [id number] RECEIPT: [id number] MTDTam
--- NOTE | 2025-03-22 08:34 | DVHOP ---
DATE OF SURGERY: 03/20/2025 TECHNIQUES PERFORMED: * Insertion of 6-Indian arterial line in the right femoral artery. * Management of conscious sedation. * Left coronary artery angiography. * Balloon angiography of the proximal to mid region of the left anterior descending artery with 3.0 x 12 mm length semi-compliant balloon. * Stenting and angioplasty of left anterior artery with the help of a long stent, which is a 4.0 x 30 mm length, [place] Pope stent of [place]. * Intravascular ultrasound of the left main and also of the left anterior descending artery stented region. * The balloon angioplasty of the stent in left anterior descending artery with 4.5 x 12 mm length noncompliant balloon and mid artery size up to 4.75 mg in size proximal to mid and distally. Procedure went well and there were no complications. * Right iliofemoral angiography. * Arteriotomy and Angio-Seal of the right femoral artery. COMPLICATIONS: None. ASSISTANTS: Assisted by Shaheen Lopez Angela and Joce. 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 Critical lesion noted in the proximal left LAD, 90% in the junction of the proximal and mid region, another 90% narrowing had been noted. We have put an XB 3.5 6-Indian guiding catheter and the left coronary angiography has been done and subsequently now we put a [place] wire, which went smoothly. We used a 3.0 x 12 mm length semi-compliant balloon and balloon angioplasty was done. Balloon had been discontinued. Subsequently, we put a stent 4.0 x 30 mm length stent has been deployed from proximal to the mid region of the left ventricular artery stent, it had been taken up to the 17 atmosphere and the stent was deployed. Results were satisfactory. We also obtained the ultrasound of the left anterior descending artery and on ultrasound we found so we put a 4.5 x 12 mm length noncompliant balloon and balloon angioplasty was done at proximal, mid, and distal region of the stent by taking the balloon all the way up to 17 atmosphere and 19 atmosphere. The stent size was then increased to 4.75 mm in size proximally, mid and distally. The procedure went well. There were no complications and balloon, wire and catheter all had been discontinued. Angio-Seal was done after doing a right iliofemoral artery angiogram. IMPRESSION: * Prior to performing the procedure #1, the left anterior artery, the most proximal mid region. * The second lesion was in the mid junction of the proximal and mid region of the left anterior descending artery which was also 90% LIUDMILA grade 2, now it is LIUDMILA grade 3 flow postprocedure and now it is widely open. CONCLUSION: The procedure went well. No more lesion now. The second lesion at the junction of proximal and mid LAD are both widely opened. There was no spasm, no dissection, no thrombosis. PLAN OF ACTION: The patient was on loading dose of Plavix 600 mg, got Integrilin intracoronary. Continue Plavix 75 mg, aspirin, beta-yaquelin, and cholesterol-reducing medicine and outpatient followup. Alecia Salazar MD MP/CHETAN/LESLIE TID: [id number] RECEIPT: [id number] MTDD
--- NOTE | 2025-03-22 08:40 | DVHOP ---
DATE OF SURGERY: 03/20/2025 TECHNIQUES PERFORMED: * Emergency case. * Ultrasound of the right radial artery. * Management of conscious sedation. * Insertion of a 6-Tristanian arterial line in the right femoral artery. * Left heart cath. * Left ventriculogram. * [place] selective left and right coronary artery angiography. INDICATION: The patient with 10/10 chest pain post angioplasty and stent of 2 arteries. DESCRIPTION OF PROCEDURE: Risks and benefits discussed in standard manner. The patient was urgently brought back to the slabber for the procedure and the right radial area thoroughly cleaned with soap and Betadine, assisted by Magi Lopez Angela, Carmira and Joce. In a standard manner, a 6-Tristanian arterial line was placed. 100 mcg of the nitroglycerin, 2.5 mg of verapamil, 2000 units of heparin was given. Arterial line had been placed. TIG catheter 5-Tristanian 4.0 With the help of similar catheter, right coronary angiography was done. With the help of pigtail catheter, complete left heart cath had been done. The left ventriculogram was done in the right anterior oblique view with a total of 20 mL of dye. Post-LV gram, left ventricular angiography had been performed with the help of pull-through technique. Aortic pressure also had been performed. J-wire was passed. Pigtail catheter also had been discontinued. IMPRESSION: * Normal left main. * The deployed stent in left anterior descending artery come from most proximal region up to the mid region of the left anterior descending artery is widely open. LIUDMILA grade 3 flow. There is no thrombosis or dissection. * The diagonal artery coming off the left anterior descending artery is normal. * The circumflex artery is of moderate size and obtuse marginal artery coming off the circumflex artery from which the high obtuse marginal artery has underlying 90% narrowing from the ostium to the proximal one-third region where the underlying LIUDMILA grade 3 flow has been noted. * The patient's right coronary artery has deployed marginal branch coming from the stent, also having 90% blockage. * The ejection fraction of the right ventricle is 65%. PLAN OF ACTION: At this time, the patient has been advised of conservative medical treatment. His chest pain has now gone out only 1/10. EKG is normal. He will be treated medically. He is started on Integrilin until Saturday. Alecia Salazar MD MP/CHETAN/LESLIE TID: [id number] RECEIPT: [id number] MTDTam
--- NOTE | 2025-03-22 13:27 | DVHPN2 ---
Progress Note - Dictate Date Seen: Mar 22, 2025 Medical Necessity Reason Pt with a Central, PICC or Fol: No Subjective Significant postprandial hyperglycemia over past 24 hours. s/p LHC with PCI this AM. vital signs Vital Sign Date Time Temp Pulse Resp B/P (MAP) Pulse Ox O2 Delivery O2 Flow Rate FiO2 03/22/25 13:00 97.3 74 16 99/62 (74) 94 97.3 03/22/25 07:45 Room Air* 0 21 Total Intake and Output 03/21/25 03/21/25 03/22/25 15:00 23:00 07:00 Intake Total 480 ml 120 ml 200 ml Output Total 1450 ml 900 ml Balance 480 ml -1330 ml -700 ml medications Current Medications Medications Dose Ordered Sig/Florencia Route Start Time Stop Time Status Last Admin Dose Admin Nitroglycerin 0.4 mg Q5MINP PRN SL 03/20/25 16:00 03/20/25 18:47 0.4 MG Morphine Sulfate 2 mg Q30M PRN IV 03/20/25 16:00 Sodium Chloride 1,000 ml @ 60 mls/hr [id number] IV 03/20/25 16:15 03/21/25 15:51 60 MLS/HR Acetaminophen/ Hydrocodone Bitart 1 tab Q4HP PRN PO 03/20/25 16:15 03/22/25 06:13 1 TAB Ondansetron HCl 4 mg Q4HP PRN IV 03/20/25 16:15 Docusate Sodium 100 mg BIDPRN PRN PO 03/20/25 16:15 Acetaminophen 650 mg Q6HP PRN PO 03/20/25 16:15 03/20/25 22:58 650 MG Morphine Sulfate 2 mg Q4HPRN PRN IV 03/20/25 16:15 03/21/25 00:08 2 MG Dextrose 50 ml UD PRN IV 03/20/25 16:15 Hydralazine HCl 10 mg Q6HP PRN IV 03/20/25 16:15 Atorvastatin Calcium 80 mg HS PO 03/20/25 22:00 03/21/25 21:20 80 MG Clopidogrel Bisulfate 75 mg DAILY PO 03/21/25 10:00 03/22/25 09:26 75 MG Aspirin 81 mg DAILY PO 03/21/25 10:00 03/22/25 09:26 81 MG Metoprolol Tartrate 25 mg BID PO 03/20/25 22:00 03/22/25 09:27 25 MG Diagnostic Test (Pha) 1 strip ACHS 03/21/25 11:30 03/22/25 12:20 1 STRIP Insulin Human Lispro HS SC 03/21/25 22:00 03/21/25 21:27 6 UNITS Insulin Human Lispro AC SC 03/21/25 11:30 03/22/25 12:20 9 UNITS Dextrose 50 ml UD PRN IV 03/21/25 09:00 Cholecalciferol 1,000 unit DAILY PO 03/21/25 10:00 03/22/25 09:26 1,000 UNIT Sacubitril/ Valsartan 1 tab BID PO 03/21/25 10:00 03/22/25 09:26 1 TAB Tamsulosin HCl 0.4 mg DAILY PO 03/21/25 10:00 03/22/25 09:26 0.4 MG Patient Own Medication 1 tab DAILY PO 03/21/25 10:00 laboratory and microbiology Laboratory Tests 03/21/25 03:41 Test 03/21/25 03:41 Range/Units Serum Glucose 132 H 74-106 mg/dL Assessment/Plan 1. Uncontrolled type 2 diabetes mellitus with hyperglycemia 2. Coronary artery disease 3. Hepatocellular liver injury - Lispro 5 units tidac Moderate intensity correctional lispro ACHS [id number] blood glucose ACHS Hypoglycemia protocol Order A1c Plan discussed with: Other (nurse) POLA ORTIZ MD Mar 22, 2025 13:26
[2025-03-22] MEDS: INSULIN LISPRO (HUMAN) 100 UNITS/ML ML SC SCH (18:08)
--- NOTE | 2025-03-22 23:17 | DVHPN2 ---
Progress Note - Dictate Date Seen: Mar 22, 2025 Medical Necessity Reason Pt with a Central, PICC or Fol: No Subjective Patient was seen and evaluated in follow up in the ICU. Patient underwent [place] selective left and right coronary artery angiography, left coronary artery angiography, balloon angiography of the proximal to mid region of the left anterior descending artery, stenting and angioplasty of left anterior artery with the help of a long stent, balloon angioplasty of the stent in left anterior descending artery, arteriotomy and Angio-Seal of the right femoral artery. The patient was on loading dose of Plavix 600 mg, got Integrilin intracoronary. Continue Plavix 75 mg, aspirin, beta-yaquelin, and cholesterol-reducing medicine and outpatient followup. BS elevated in the 200s. vital signs Vital Sign Date Time Temp Pulse Resp B/P (MAP) Pulse Ox O2 Delivery O2 Flow Rate FiO2 03/22/25 21:17 87 107/63 03/22/25 20:39 98.1 18 97 98.1 03/22/25 07:45 Room Air* 0 21 Total Intake and Output 03/21/25 03/21/25 03/22/25 15:00 23:00 07:00 Intake Total 480 ml 120 ml 200 ml Output Total 1450 ml 900 ml Balance 480 ml -1330 ml -700 ml medications Current Medications Medications Dose Ordered Sig/Flore[place] Route Start Time Stop Time Status Last Admin Dose Admin Nitroglycerin 0.4 mg Q5MINP PRN SL 03/20/25 16:00 03/20/25 18:47 0.4 MG Morphine Sulfate 2 mg Q30M PRN IV 03/20/25 16:00 Sodium Chloride 1,000 ml @ 60 mls/hr [id number] IV 03/20/25 16:15 03/22/25 18:09 60 MLS/HR Acetaminophen/ Hydrocodone Bitart 1 tab Q4HP PRN PO 03/20/25 16:15 03/22/25 19:32 1 TAB Ondansetron HCl 4 mg Q4HP PRN IV 03/20/25 16:15 Docusate Sodium 100 mg BIDPRN PRN PO 03/20/25 16:15 Acetaminophen 650 mg Q6HP PRN PO 03/20/25 16:15 03/20/25 22:58 650 MG Morphine Sulfate 2 mg Q4HPRN PRN IV 03/20/25 16:15 03/21/25 00:08 2 MG Dextrose 50 ml UD PRN IV 03/20/25 16:15 Hydralazine HCl 10 mg Q6HP PRN IV 03/20/25 16:15 Atorvastatin Calcium 80 mg HS PO 03/20/25 22:00 03/22/25 21:13 80 MG Clopidogrel Bisulfate 75 mg DAILY PO 03/21/25 10:00 03/22/25 09:26 75 MG Aspirin 81 mg DAILY PO 03/21/25 10:00 03/22/25 09:26 81 MG Metoprolol Tartrate 25 mg BID PO 03/20/25 22:00 03/22/25 21:17 25 MG Diagnostic Test (Pha) 1 strip ACHS 03/21/25 11:30 03/22/25 21:27 1 STRIP Insulin Human Lispro [facility] 03/21/25 22:00 03/22/25 21:29 4 UNITS Insulin Human Lispro AC OK 03/21/25 11:30 03/22/25 18:08 9 UNITS Dextrose 50 ml UD PRN IV 03/21/25 09:00 Cholecalciferol 1,000 unit DAILY PO 03/21/25 10:00 03/22/25 09:26 1,000 UNIT Sacubitril/ Valsartan 1 tab BID PO 03/21/25 10:00 03/22/25 21:15 1 TAB Tamsulosin HCl 0.4 mg DAILY PO 03/21/25 10:00 03/22/25 09:26 0.4 MG Patient Own Medication 1 tab DAILY PO 03/21/25 10:00 Insulin Human Lispro 5 units AC OK 03/22/25 17:00 03/22/25 18:08 5 UNITS objective GENERAL: Alert and oriented x 3. No acute distress. EYES: PERRL, EOMI. Anicteric. HENT: Moist mucous membranes. LUNGS: Clear to auscultation bilaterally. CARDIOVASCULAR: Regular rate and rhythm. ABDOMEN: Soft, nontender and nondistended. EXTREMITIES: No edema. NEUROLOGIC: No focal neurological deficits. SKIN: Warm, dry. laboratory and microbiology Laboratory Tests 03/21/25 03:41 Test 03/21/25 03:41 Range/Units Serum Glucose 132 H 74-106 mg/dL Problem List Acute coronary syndrome. Unstable angina. Assessment/Plan Continued all current supportive medical care. Morphine and [place] for pain management. Aspirin, Lipitor, Metoprolol, Plavix. IV Hydralazine for SBP > 160. Additional plan as per the hospital course. Critical care time of 45 minutes provided to include time spent evaluation of patient at bedside, when appropriate patient/family education for diagnosis, treatment plan, review of pertinent medical information and discussion of care with specialty providers and PCP. Plan discussed with: Patient KAYLA KIRBY MD Mar 22, 2025 23:17
[2025-03-23 01:00] VITALS: BP 114/78; PULSE 77; RESP 18; TEMP 98.2; O2SAT 99
[2025-03-23 04:48] VITALS: BP 115/80; PULSE 84; RESP 16; TEMP 97.7; O2SAT 97
[2025-03-23 09:00] VITALS: BP 96/68; PULSE 84; RESP 17; TEMP 98.5; O2SAT 96
--- NOTE | 2025-03-23 10:20 | DVHINCON2 ---
Date of service: Mar 21, 2025 Reason for Consultation Medical management. History of Present Illness Gunner Lamb is a 64-year-old M who [place] [facility] [place]. Patient underwent left heart catheterization, [place] selective left and right coronary artery angiography. Subsequently found with 80% LAD ostiun 90% mid LAD, RCA mid 99%. He was then advised for HLOC transfer further coronary revascularization per wine maker. Patient underwent LHC w/PCI. Per report: prior to performing the procedure #1, the right coronary artery in the mid region is narrowed 99% with thrombus formation, type C lesion; postprocedure LIUDMILA grade 3 flow; residual stenosis is 0%, no spasm, no dissection, no thrombosis. Subsequently advised to undergo angioplasty, stenting of the left anterior descending artery. Prior to performing the procedure #1, the left anterior artery, the most proximal mid region; the second lesion was in the mid junction of the proximal and mid region of the left anterior descending artery which was also 90% LIUDMILA grade 2, now it is LIUDMILA grade 3 flow postprocedure and now it is widely open. Patient tolerated procedure well. Continued on Integrilin drip in ICU. Reports chest pain has improved currently 05/15. F/u EKG is normal. Family History: Diabetes mellitus G8 MOTHER Allergies: Coded Allergies: NO KNOWN ALLERGIES (Unverified , 03/10/25) Home Meds Reported Medications Sennosides (Laxative Maximum Strength) 25 Mg Tab, 25 MG PO, TAB 03/11/25 Ibuprofen (Ibuprofen) 600 Mg Tab, 1 TAB PO TID, #90 TAB 03/11/25 Atorvastatin Calcium (ATORVASTATIN CALCIUM) 10 Mg Tab, 1 TAB PO DAILY, #30 TAB 5 Refills 03/11/25 Sacubitril-Valsartan (Entresto 24-26 mg) 1 Tab Tab, 1 TAB PO, TAB 03/11/25 Cholecalciferol (Gnp Vitamin D) 1,000 Unit Tab, 1000 UNIT PO, TAB 03/11/25 Metformin Hydrochloride (Metformin Hcl) 1,000 Mg Tab, 1 TAB PO BID, #180 TAB 3 Refills 03/11/25 Amiodarone Hcl (Amiodarone Hcl) 200 Mg Tab, 200 MG PO BID, TAB 03/11/25 Tamsulosin Hcl (Tamsulosin Hcl) 0.4 Mg Cap, 1 CAP PO DAILY, #90 CAP 1 Refill 03/11/25 Gabapentin (Gabapentin) 600 Mg Tab, 1 TAB PO TID, #90 TAB 3 Refills 03/11/25 Loratadine (Claritin) 10 Mg Tab, 1 TAB PO DAILY, #30 TAB 5 Refills 03/11/25 Insulin Lispro (Humalog Pawan Kwikpen) 100 Unit/Ml Inj, 100 UNIT SC, INJ 03/11/25 Diclofenac Sodium (Topical) (Arthritis Pain Reliever) 1 % Gel, 1 % EX, GEL 03/11/25 Sitagliptin Phosphate (Januvia) 100 Mg Tab, 1 TAB PO DAILY, #30 TAB 5 Refills 03/11/25 Sildenafil Citrate (Sildenafil) 100 Mg Tab, 100 MG PO, TAB 03/11/25 Current Medications Current Medications Medications (Trade) Dose Ordered Sig/Florencia Route PRN Reason Start Time Stop Time Status Last Admin Insulin Human Lispro (HumaLOG) 5 units AC SC 03/22/25 17:00 03/22/25 18:08 Review of Systems All systems reviewed and negative unless otherwise noted in HPI. Vital Signs Vital Signs Date Time Temp Pulse Resp B/P (MAP) Pulse Ox O2 Delivery O2 Flow Rate FiO2 03/23/25 09:28 91 126/71 03/23/25 09:00 98.5 17 96 98.5 03/22/25 20:00 Room Air* 0 21 Physical Exam Vitals and nursing notes reviewed. GENERAL: In no acute distress. EYES: PERRL, EOMI. Anicteric. HENT: HC/AT. Moist mucous membranes. LUNGS: Clear to auscultation bilaterally.No wheezes, rales, rhonchi. CARDIOVASCULAR: Regular rate and rhythm. ABDOMEN: Soft, nontender and nondistended. EXTREMITIES: No extremity deformity. No edema. NEUROLOGIC: A&Ox3. No focal neurological deficits. SKIN: Warm, dry. Labs/Diagnostic Data Labs Test 03/22/25 21:26 03/21/25 03:41 03/20/25 22:09 Range/Units POC Glucose 202 H 70-106 mg/dl White Blood Count 5.1 4.4-10.8 10^3/uL Red Blood Count 4.48 L 4.5-5.90 10^6/uL Hemoglobin 14.5 13.5-17.5 g/dL Hematocrit 42.3 41.0-53.0 % Mean Corpuscular Volume 94.6 80.0-100.0 fL Mean Corpuscular Hemoglobin 32.3 H 28.0-32.0 pg Mean Corpuscular Hemoglobin Concent 34.1 32.0-36.0 g/dL Red Cell Distribution Width 14.5 H 11.8-14.3 % Platelet Count 216 140-450 10^3/uL Mean Platelet Volume 8.5 6.9-10.8 fL Neutrophils (%) (Auto) 59.3 37.0-80.0 % Lymphocytes (%) (Auto) 26.7 10.0-50.0 % Monocytes (%) (Auto) 12.5 H 0.0-12.0 % Eosinophils (%) (Auto) 1.0 0.0-7.0 % Basophils (%) (Auto) 0.5 0.0-2.0 % Neutrophils # (Auto) 3.1 1.6-8.6 10 ^3/uL Lymphocytes # (Auto) 1.4 0.4-5.4 10 ^3/uL Monocytes # (Auto) 0.6 0-1.3 10 ^3/uL Eosinophils # (Auto) 0 0-0.8 10 ^3/uL Basophils # (Auto) 0 0-0.2 10 ^3/uL Nucleated Red Blood Cells 0.1 % Sodium Level 139 136-145 mmol/L Potassium Level 4.1 3.5-5.1 mmol/L Chloride Level 103 98-107 mmol/L Carbon Dioxide Level 24 20-31 mmol/L Anion Gap 12 5-15 Blood Urea Nitrogen 15 9-23 mg/dL Creatinine 0.83 0.700-1.30 mg/dL Glomerular Filtration Rate Calc 97 >90 mL/min BUN/Creatinine Ratio 18.1 10.0-20.0 Serum Glucose 132 H 74-106 mg/dL Calcium Level 9.0 8.7-10.4 mg/dL Total Bilirubin 0.9 0.2-1.0 mg/dL Aspartate Amino Transferase (AST) 41 H 13-40 U/L Alanine Aminotransferase (ALT) 75 H 7-40 U/L Alkaline Phosphatase 35 L 46-116 U/L Total Protein 6.2 5.7-8.2 g/dL Albumin 4.1 3.2-4.8 g/dL Prothrombin Time 13.3 H 9.3-11.8 sec Prothrombin Time INR 1.29 H 0.9-1.15 Activated Partial Thromboplast Time 46.4 H 24.5-34.5 SEC Microbiology Date/Time Source Procedure Growth Status 03/20/25 21:45 Nose MRSA Screen - Final Complete Assessment Acute coronary syndrome Unstable angina Uncontrolled type 2 diabetes mellitus with hyperglycemia Hepatocellular liver injury Plan/Recommendation Admitted to ICU. Pending downgrade to telemetry floor. Cardiology consulted. S/p LHC w/PCI. Patient was on loading dose of Plavix 600 mg. Got Integrilin intracoronary. To continue Plavix 75 mg, aspirin, beta-yaquelin, and cholesterol-reducing medicine. Pain management prn. Optimization of BP with IV Hydralazine prn. Endocrinology consulted. Continued on moderate intensity correctional lispro ACHS. Additional plan as per the hospital course. Plan discussed with: Patient, Other (RN) SURI KIRBY DO Mar 23, 2025 10:19
--- NOTE | 2025-03-23 10:20 | DVHPN2 ---
Progress Note - Dictate Date Seen: Mar 22, 2025 Has the PT tested + for MRSA If YES, has PT been informed?: No Medical Necessity Reason Pt with a Central, PICC or Fol: No Subjective Patient was seen and evaluated in follow up. No acute events overnight. Patient was downgraded last night. Denies any chest pain or SOB. On room air. vital signs Vital Sign Date Time Temp Pulse Resp B/P (MAP) Pulse Ox O2 Delivery O2 Flow Rate FiO2 03/23/25 09:28 91 126/71 03/23/25 09:00 98.5 17 96 98.5 03/22/25 20:00 Room Air* 0 21 Total Intake and Output 03/22/25 03/22/25 03/23/25 14:59 22:59 06:59 Intake Total 1458 ml 400 ml Output Total 1385 ml 500 ml Balance 73 ml -100 ml medications Current Medications Medications Dose Ordered Sig/Florencia Route Start Time Stop Time Status Last Admin Dose Admin Nitroglycerin 0.4 mg Q5MINP PRN SL 03/20/25 16:00 03/20/25 18:47 0.4 MG Morphine Sulfate 2 mg Q30M PRN IV 03/20/25 16:00 Sodium Chloride 1,000 ml @ 60 mls/hr [id number] IV 03/20/25 16:15 03/22/25 18:09 60 MLS/HR Acetaminophen/ Hydrocodone Bitart 1 tab Q4HP PRN PO 03/20/25 16:15 03/22/25 19:32 1 TAB Ondansetron HCl 4 mg Q4HP PRN IV 03/20/25 16:15 Docusate Sodium 100 mg BIDPRN PRN PO 03/20/25 16:15 Acetaminophen 650 mg Q6HP PRN PO 03/20/25 16:15 03/20/25 22:58 650 MG Morphine Sulfate 2 mg Q4HPRN PRN IV 03/20/25 16:15 03/21/25 00:08 2 MG Dextrose 50 ml UD PRN IV 03/20/25 16:15 Hydralazine HCl 10 mg Q6HP PRN IV 03/20/25 16:15 Atorvastatin Calcium 80 mg HS PO 03/20/25 22:00 03/22/25 21:13 80 MG Clopidogrel Bisulfate 75 mg DAILY PO 03/21/25 10:00 03/23/25 09:27 75 MG Aspirin 81 mg DAILY PO 03/21/25 10:00 03/23/25 09:27 81 MG Metoprolol Tartrate 25 mg BID PO 03/20/25 22:00 03/23/25 09:28 25 MG Diagnostic Test (Pha) 1 strip ACHS 03/21/25 11:30 03/23/25 06:05 1 STRIP Insulin Human Lispro HS SC 03/21/25 22:00 03/22/25 21:29 4 UNITS Insulin Human Lispro AC SC 03/21/25 11:30 03/22/25 18:08 9 UNITS Dextrose 50 ml UD PRN IV 03/21/25 09:00 Cholecalciferol 1,000 unit DAILY PO 03/21/25 10:00 03/23/25 09:28 1,000 UNIT Sacubitril/ Valsartan 1 tab BID PO 03/21/25 10:00 03/23/25 09:28 1 TAB Tamsulosin HCl 0.4 mg DAILY PO 03/21/25 10:00 03/23/25 09:27 0.4 MG Patient Own Medication 1 tab DAILY PO 03/21/25 10:00 Insulin Human Lispro 5 units AC [place] 03/22/25 17:00 03/22/25 18:08 5 UNITS objective Vitals and nursing notes reviewed. GENERAL: In no acute distress. EYES: PERRL, EOMI. Anicteric. HENT: HC/AT. Moist mucous membranes. LUNGS: Clear to auscultation bilaterally.No wheezes, rales, rhonchi. CARDIOVASCULAR: Regular rate and rhythm. ABDOMEN: Soft, nontender and nondistended. EXTREMITIES: No extremity deformity. No edema. NEUROLOGIC: A&Ox3. No focal neurological deficits. SKIN: Warm, dry. laboratory and microbiology Laboratory Tests 03/21/25 03:41 Test 03/21/25 03:41 Range/Units Serum Glucose 132 H 74-106 mg/dL Problem List Acute coronary syndrome Unstable angina Uncontrolled type 2 diabetes mellitus with hyperglycemia Hepatocellular liver injury Assessment/Plan Continue current supportive medical care. Cardiology consulted. S/p LHC w/PCI. Continue Plavix 75 mg, aspirin, beta-yaquelin, and cholesterol-reducing medicine. Pain management prn. Optimization of BP with IV Hydralazine prn. Endocrinology consulted. Continued on moderate intensity correctional lispro ACHS. Additional plan as per the hospital course. Plan discussed with: Patient, Other (RN) SURI KIRBY DO Mar 23, 2025 10:20
[2025-03-23 13:00] VITALS: BP 123/77; PULSE 77; RESP 16; TEMP 98.5; O2SAT 96
--- NOTE | 2025-03-23 13:54 | DVHPN2 ---
Progress Note - Dictate Date Seen: Mar 23, 2025 Medical Necessity Reason Pt with a Central, PICC or Fol: No Subjective Postprandial hyperglycemia. Patient refused POC BG this AM so unable to give mealtime insulin. vital signs Vital Sign Date Time Temp Pulse Resp B/P (MAP) Pulse Ox O2 Delivery O2 Flow Rate FiO2 03/23/25 13:00 98.5 77 16 123/77 (92) 96 98.5 03/22/25 20:00 Room Air* 0 21 Total Intake and Output 03/22/25 03/22/25 03/23/25 15:00 23:00 07:00 Intake Total 1458 ml 400 ml Output Total 1385 ml 500 ml Balance 73 ml -100 ml medications Current Medications Medications Dose Ordered Sig/Florencia Route Start Time Stop Time Status Last Admin Dose Admin Nitroglycerin 0.4 mg Q5MINP PRN SL 03/20/25 16:00 03/20/25 18:47 0.4 MG Morphine Sulfate 2 mg Q30M PRN IV 03/20/25 16:00 Sodium Chloride 1,000 ml @ 60 mls/hr [id number] IV 03/20/25 16:15 03/22/25 18:09 60 MLS/HR Acetaminophen/ Hydrocodone Bitart 1 tab Q4HP PRN PO 03/20/25 16:15 03/22/25 19:32 1 TAB Ondansetron HCl 4 mg Q4HP PRN IV 03/20/25 16:15 Docusate Sodium 100 mg BIDPRN PRN PO 03/20/25 16:15 Acetaminophen 650 mg Q6HP PRN PO 03/20/25 16:15 03/20/25 22:58 650 MG Morphine Sulfate 2 mg Q4HPRN PRN IV 03/20/25 16:15 03/21/25 00:08 2 MG Dextrose 50 ml UD PRN IV 03/20/25 16:15 Hydralazine HCl 10 mg Q6HP PRN IV 03/20/25 16:15 Atorvastatin Calcium 80 mg HS PO 03/20/25 22:00 03/22/25 21:13 80 MG Clopidogrel Bisulfate 75 mg DAILY PO 03/21/25 10:00 03/23/25 09:27 75 MG Aspirin 81 mg DAILY PO 03/21/25 10:00 03/23/25 09:27 81 MG Metoprolol Tartrate 25 mg BID PO 03/20/25 22:00 03/23/25 09:28 25 MG Diagnostic Test (Pha) 1 strip ACHS 03/21/25 11:30 03/23/25 11:40 1 STRIP Insulin Human Lispro HS SC 03/21/25 22:00 03/22/25 21:29 4 UNITS Insulin Human Lispro AC SC 03/21/25 11:30 03/23/25 11:50 9 UNITS Dextrose 50 ml UD PRN IV 03/21/25 09:00 Cholecalciferol 1,000 unit DAILY PO 03/21/25 10:00 03/23/25 09:28 1,000 UNIT Sacubitril/ Valsartan 1 tab BID PO 03/21/25 10:00 03/23/25 09:28 1 TAB Tamsulosin HCl 0.4 mg DAILY PO 03/21/25 10:00 03/23/25 09:27 0.4 MG Patient Own Medication 1 tab DAILY PO 03/21/25 10:00 Insulin Human Lispro 5 units AC [place] 03/22/25 17:00 03/23/25 11:50 5 UNITS laboratory and microbiology Laboratory Tests 03/21/25 03:41 Test 03/21/25 03:41 Range/Units Serum Glucose 132 H 74-106 mg/dL Assessment/Plan 1. Uncontrolled type 2 diabetes mellitus with hyperglycemia 2. Coronary artery disease 3. Hepatocellular liver injury - Lispro 5 units tidac Moderate intensity correctional lispro ACHS [id number] blood glucose ACHS Hypoglycemia protocol Order A1c Plan discussed with: Other (nurse) POLA ORTIZ MD Mar 23, 2025 13:54
[2025-03-23 15:41] VITALS: BP 126/71; PULSE 91; TEMP 36.9
[2025-03-23 17:00] VITALS: BP 108/73; PULSE 86; RESP 16; TEMP 98.3; O2SAT 95
--- NOTE | 2025-03-23 20:46 | DVHDS2 ---
Discharge Summary Date of Admission Mar 20, 2025 at 15:50 Date of Discharge: Mar 23, 2025 Admitting Diagnosis Acute coronary syndrome Unstable angina Uncontrolled type 2 diabetes mellitus with hyperglycemia Hepatocellular liver injury Labs/Diagnostic Data: Laboratory Results Test 03/23/25 17:26 03/21/25 03:41 03/20/25 22:09 POC Glucose 320 mg/dl (70-106) White Blood Count 5.1 10^3/uL (4.4-10.8) Red Blood Count 4.48 10^6/uL (4.5-5.90) Hemoglobin 14.5 g/dL (13.5-17.5) Hematocrit 42.3 % (41.0-53.0) Mean Corpuscular Volume 94.6 fL (80.0-100.0) Mean Corpuscular Hemoglobin 32.3 pg (28.0-32.0) Mean Corpuscular Hemoglobin Concent 34.1 g/dL (32.0-36.0) Red Cell Distribution Width 14.5 % (11.8-14.3) Platelet Count 216 10^3/uL (140-450) Mean Platelet Volume 8.5 fL (6.9-10.8) Neutrophils (%) (Auto) 59.3 % (37.0-80.0) Lymphocytes (%) (Auto) 26.7 % (10.0-50.0) Monocytes (%) (Auto) 12.5 % (0.0-12.0) Eosinophils (%) (Auto) 1.0 % (0.0-7.0) Basophils (%) (Auto) 0.5 % (0.0-2.0) Neutrophils # (Auto) 3.1 10 ^3/uL (1.6-8.6) Lymphocytes # (Auto) 1.4 10 ^3/uL (0.4-5.4) Monocytes # (Auto) 0.6 10 ^3/uL (0-1.3) Eosinophils # (Auto) 0 10 ^3/uL (0-0.8) Basophils # (Auto) 0 10 ^3/uL (0-0.2) Nucleated Red Blood Cells 0.1 % Sodium Level 139 mmol/L (136-145) Potassium Level 4.1 mmol/L (3.5-5.1) Chloride Level 103 mmol/L (98-107) Carbon Dioxide Level 24 mmol/L (20-31) Anion Gap 12 (5-15) Blood Urea Nitrogen 15 mg/dL (9-23) Creatinine 0.83 mg/dL (0.700-1.30) Glomerular Filtration Rate Calc 97 mL/min (>90) BUN/Creatinine Ratio 18.1 (10.0-20.0) Serum Glucose 132 mg/dL (74-106) Calcium Level 9.0 mg/dL (8.7-10.4) Total Bilirubin 0.9 mg/dL (0.2-1.0) Aspartate Amino Transferase (AST) 41 U/L (13-40) Alanine Aminotransferase (ALT) 75 U/L (7-40) Alkaline Phosphatase 35 U/L (46-116) Total Protein 6.2 g/dL (5.7-8.2) Albumin 4.1 g/dL (3.2-4.8) Prothrombin Time 13.3 sec (9.3-11.8) Prothrombin Time INR 1.29 (0.9-1.15) Activated Partial Thromboplast Time 46.4 SEC (24.5-34.5) Other Laboratory Tests 03/21/25 03:41 Brief Hx & Hospital Course: Gunner Lamb is a 64-year-old M who was initially referred to [facility] [place]. Patient underwent left heart catheterization, [place] selective left and right coronary artery angiography. Subsequently found with 80% LAD ostiun 90% mid LAD, RCA mid 99%. Patient was then advised for HLOC transfer further coronary revascularization per hospice spiritual care coordinator. Patient underwent C w/PCI. Per report: prior to performing the procedure #1, the right coronary artery in the mid region is narrowed 99% with thrombus formation, type C lesion; postprocedure LIUDMILA grade 3 flow; residual stenosis is 0%, no spasm, no dissection, no thrombosis. Subsequently advised to undergo angioplasty, stenting of the left anterior descending artery. Prior to performing the procedure #1, the left anterior artery, the most proximal mid region; the second lesion was in the mid junction of the proximal and mid region of the left anterior descending artery which was also 90% LIUDMILA grade 2, now it is LIUDMILA grade 3 flow postprocedure and now it is widely open. Patient tolerated procedure well. He was continued on Integrilin drip in ICU, downgraded to telemetry floor on 03/21. F/u EKG is normal. Rehabilitation Services Aide was also consulted for uncontrolled type 2 diabetes mellitus with hyperglycemia. Patient was continued on moderate intensity correctional lispro ACHS. He is advised to continue conservative medical management with Plavix 75 mg, aspirin, beta-yaquelin, and cholesterol-reducing medicine. Patient has scheduled follow up appointment tomorrow with hospice spiritual care coordinator, Dr. Graham Kirby. Patient's acute symptoms have overall stabilized and improved. Patient is cleared for discharge to include from cardiology standpoint and is stable at the time of discharge. Physical exam: Vitals and nursing notes reviewed. GENERAL: In no acute distress. EYES: PERRL, EOMI. Anicteric. HENT: HC/AT. Moist mucous membranes. LUNGS: Clear to auscultation bilaterally.No wheezes, rales, rhonchi. CARDIOVASCULAR: Regular rate and rhythm. ABDOMEN: Soft, nontender and nondistended. EXTREMITIES: No extremity deformity. No edema. NEUROLOGIC: A&Ox3. No focal neurological deficits. SKIN: Warm, dry. Consults/Reason for consult Cardiology- Dr. Graham Kirby. S/p C w/PCI Condition at Discharge: Stable Final Diagnosis/Problems List Acute coronary syndrome Unstable angina Uncontrolled type 2 diabetes mellitus with hyperglycemia Hepatocellular liver injury Discharge Disposition: Home Discharge Instruct/Medications Diet: Cardiac 2g Na,low cholest Activity: No Restrictions, As Tolerated Follow Up/Referral: PLEASE FOLLOW UP WITH PCP WITHIN 1 WEEK FOLLOW UP WITH INCIDENT RESPONSE ENGINEER Luca KIRBY 03/24 AT 12:00AM Medications: RESUME ALL HOME MEDICATION PRESCRIPTION SENT TO PHARMACY: ASPIRIN, PLAVIX, METOPROLOL, LIPITOR ASPIRIN 81 MG PO DAILY METOPROLOL SUCCINATE E.R. 25 MD DAILY LIPITOR 40MG DAILY PLAVIX 75MG DAILY PLEASE TAKE MEDICATIONS INDICATED. Scheduled Amiodarone Hcl (Amiodarone Hcl), 200 MG PO BID, (Reported) Atorvastatin Calcium (Atorvastatin Calcium), 1 TAB PO DAILY, (Reported) Gabapentin (Gabapentin), 1 TAB PO TID, (Reported) Ibuprofen (Ibuprofen), 1 TAB PO TID, (Reported) Loratadine (Claritin), 1 TAB PO DAILY, (Reported) Metformin Hydrochloride (Metformin Hcl), 1 TAB PO BID, (Reported) Sitagliptin Phosphate (Januvia), 1 TAB PO DAILY, (Reported) Tamsulosin Hcl (Tamsulosin Hcl), 1 CAP PO DAILY, (Reported) Miscellaneous Medications Cholecalciferol (Gnp Vitamin D), 1,000 UNIT PO, (Reported) Diclofenac Sodium (Topical) (Arthritis Pain Reliever), 1 % EX, (Reported) Insulin Lispro (Humalog Pawan Kwikpen), 100 UNIT SC, (Reported) Sacubitril-Valsartan (Entresto 24-26 mg), 1 TAB PO, (Reported) Sennosides (Laxative Maximum Strength), 25 MG PO, (Reported) Sildenafil Citrate (Sildenafil), 100 MG PO, (Reported) Discharge Statement: "Patient was advised to return to the ER or call 911 if any headaches, dizziness, shortness of breath, chest pain, abdominal pain, bleeding, fevers, or worsening of medical condition. Patient was counseled about treatment plan, medications, possible side effects, patientverbalized understanding. All questions were answered to the best of my ability. This discharge took greater then 30 minutes in planning, reviewing documentation, counseling the patient, and discussing with other team members." ASSESSMENT ASSESSMENT Assessment Acute coronary syndrome. SURI KIRBY DO Mar 23, 2025 20:46
--- NOTE | 2025-03-23 23:14 | DVHPN2 ---
Progress Note - Dictate Date Seen: Mar 23, 2025 Medical Necessity Reason Pt with a Central, PICC or Fol: No Subjective Patient was seen and evaluated in follow up. Patient was downgraded to telemetry. Patient complains of generalized pain. GLUC 272. Telemetry reviewed. vital signs Vital Sign Date Time Temp Pulse Resp B/P (MAP) Pulse Ox O2 Delivery O2 Flow Rate FiO2 03/23/25 13:00 98.5 77 16 123/77 (92) 96 98.5 03/22/25 20:00 Room Air* 0 21 Total Intake and Output 03/22/25 03/22/25 03/23/25 15:00 23:00 07:00 Intake Total 1458 ml 400 ml Output Total 1385 ml 500 ml Balance 73 ml -100 ml medications Current Medications Medications Dose Ordered Sig/Florencia Route Start Time Stop Time Status Last Admin Dose Admin Nitroglycerin 0.4 mg Q5MINP PRN SL 03/20/25 16:00 03/20/25 18:47 0.4 MG Morphine Sulfate 2 mg Q30M PRN IV 03/20/25 16:00 Sodium Chloride 1,000 ml @ 60 mls/hr [id number] IV 03/20/25 16:15 03/22/25 18:09 60 MLS/HR Acetaminophen/ Hydrocodone Bitart 1 tab Q4HP PRN PO 03/20/25 16:15 03/22/25 19:32 1 TAB Ondansetron HCl 4 mg Q4HP PRN IV 03/20/25 16:15 Docusate Sodium 100 mg BIDPRN PRN PO 03/20/25 16:15 Acetaminophen 650 mg Q6HP PRN PO 03/20/25 16:15 03/20/25 22:58 650 MG Morphine Sulfate 2 mg Q4HPRN PRN IV 03/20/25 16:15 03/21/25 00:08 2 MG Dextrose 50 ml UD PRN IV 03/20/25 16:15 Hydralazine HCl 10 mg Q6HP PRN IV 03/20/25 16:15 Atorvastatin Calcium 80 mg HS PO 03/20/25 22:00 03/22/25 21:13 80 MG Clopidogrel Bisulfate 75 mg DAILY PO 03/21/25 10:00 03/23/25 09:27 75 MG Aspirin 81 mg DAILY PO 03/21/25 10:00 03/23/25 09:27 81 MG Metoprolol Tartrate 25 mg BID PO 03/20/25 22:00 03/23/25 09:28 25 MG Diagnostic Test (Pha) 1 strip ACHS 03/21/25 11:30 03/23/25 11:40 1 STRIP Insulin Human Lispro HS SC 03/21/25 22:00 03/22/25 21:29 4 UNITS Insulin Human Lispro AC SC 03/21/25 11:30 03/23/25 11:50 9 UNITS Dextrose 50 ml UD PRN IV 03/21/25 09:00 Cholecalciferol 1,000 unit DAILY PO 03/21/25 10:00 03/23/25 09:28 1,000 UNIT Sacubitril/ Valsartan 1 tab BID PO 03/21/25 10:00 03/23/25 09:28 1 TAB Tamsulosin HCl 0.4 mg DAILY PO 03/21/25 10:00 03/23/25 09:27 0.4 MG Patient Own Medication 1 tab DAILY PO 03/21/25 10:00 Insulin Human Lispro 5 units AC [place] 03/22/25 17:00 03/23/25 11:50 5 UNITS objective GENERAL: Alert and oriented x 3. No acute distress. EYES: PERRL, EOMI. Anicteric. HENT: Moist mucous membranes. LUNGS: Clear to auscultation bilaterally. CARDIOVASCULAR: Regular rate and rhythm. ABDOMEN: Soft, nontender and nondistended. EXTREMITIES: No edema. NEUROLOGIC: No focal neurological deficits. SKIN: Warm, dry. laboratory and microbiology Laboratory Tests 03/21/25 03:41 Test 03/21/25 03:41 Range/Units Serum Glucose 132 H 74-106 mg/dL Problem List Acute coronary syndrome. Unstable angina. Assessment/Plan Continued all current supportive medical care. Entresto. Morphine for pain management. Aspirin, Metoprolol, Plavix. IV Hydralazine for SBP > 160. Additional plan as per the hospital course. Plan discussed with: Patient KAYLA KIRBY MD Mar 23, 2025 13:56
== END 2025-03-23 17:50 | disposition home or self-care (01) | DRG 360 ==
LOC: TELE-CENTR 15:50 → ICU WEST 21:23 → TELE-EAST 03-21 18:10
PROVIDERS: ADMIT Internal Medicine Nephrology; ATTEND Internal Medicine Nephrology
PROC: 02C03ZZ Extirpation of Matter from Coronary Artery, One Artery, Percutaneous Approach (ICD-10-PCS; principal; 2025-03-20)
PROC: 027135Z Dilation of Coronary Artery, Two Arteries with Two Drug-eluting Intraluminal Devices, Percutaneous Approach (ICD-10-PCS; 2025-03-20)
PROC: 3E07317 Introduction of Other Thrombolytic into Coronary Artery, Percutaneous Approach (ICD-10-PCS; 2025-03-20)
PROC: 4A023N7 Measurement of Cardiac Sampling and Pressure, Left Heart, Percutaneous Approach (ICD-10-PCS; 2025-03-20)
PROC: B211YZZ Fluoroscopy of Multiple Coronary Arteries using Other Contrast (ICD-10-PCS; 2025-03-20)
PROC: B241ZZ3 Ultrasonography of Multiple Coronary Arteries, Intravascular (ICD-10-PCS; 2025-03-20)
PROC: B215YZZ Fluoroscopy of Left Heart using Other Contrast (ICD-10-PCS; 2025-03-20)
PROC: 04HY32Z Insertion of Monitoring Device into Lower Artery, Percutaneous Approach (ICD-10-PCS; 2025-03-20)
DX: I25.110 Atherosclerotic heart disease of native coronary artery with unstable angina pectoris (principal); I74.3 Embolism and thrombosis of arteries of the lower extremities; Z79.02 Long term (current) use of antithrombotics/antiplatelets; E11.65 Type 2 diabetes mellitus with hyperglycemia; I24.9 Acute ischemic heart disease, unspecified; S36.118A Other injury of liver, initial encounter; Z83.3 Family history of diabetes mellitus; Z79.82 Long term (current) use of aspirin; Y92.89 Other specified places as the place of occurrence of the external cause
CPT/HCPCS: 36415; 80053; 82962; 85025; 85610; 85730; 86850; 86900; 86901; 87081; 92928; 92973; 92978; 93005; 99152; G0378; J1815; J2250; J2405; Q9967